=== PATIENT | female | born 1980 | race Two or more races ===

== ENCOUNTER 2018-03-23 17:42 | Emergency (ER) | payer MEDICARE, OTHER ==
[~2018-03-23] VITALS: Ht 162.6 cm; Wt 68.2 kg
[~2018-03-23 17:42] MED LIST: CEPH500 PO; QUET50TA PO; SERT50TA12 PO; VITAD1000 PO
[2018-03-23] MEDS ORDERED: PALI39DI IM (17:57)
[2018-03-23] MEDS ORDERED: HydrOXYzine PAMOATE 50 MG CAPSULE PO ONE (18:15)
[2018-03-23] MEDS ORDERED: IBUPROFEN 600 MG TABLET PO ONE (18:15)
[2018-03-23 21:30] VITALS: BP 121/76
== END 2018-03-23 22:01 | disposition home or self-care (01) ==
LOC: EMS 17:43
DX: F41.9 Anxiety disorder, unspecified (principal); F31.9 Bipolar disorder, unspecified; E03.9 Hypothyroidism, unspecified; F20.9 Schizophrenia, unspecified; K76.0 Fatty (change of) liver, not elsewhere classified; Z79.899 Other long term (current) drug therapy; Z88.8 Allergy status to other drugs, medicaments and biological substances
CPT/HCPCS: 99284

== ENCOUNTER 2018-08-27 13:14 | Inpatient (IN) | payer MEDICARE, MEDICAID ==
[~2018-08-27] VITALS: Ht 160 cm; Wt 70.3 kg
[~2018-08-27 13:14] MED LIST changes: -CEPH500 PO; +PALI39DI IM; -VITAD1000 PO
[2018-08-27 14:33] LABS: BASOPHILS % (AUTO) 0.7 % (0.0-2.0); EOSINOPHILS % (AUTO) 3.5 % (1.0-6.0); HEMATOCRIT 42.1 % (36-46); HEMOGLOBIN 14.3 g/dL (12.0-16.0); LYMPHOCYTES # (AUTO) 1.5 K/uL (1.0-4.8); LYMPHOCYTES % (AUTO) 15.9 % (22.0-44.0); MEAN CORPUSCULAR HEMOGLOBIN 28.1 pg (26.0-34.0); MEAN CORPUSCULAR HGB CONC 34.1 G/dL (31.0-37.0); MEAN CORPUSCULAR VOLUME 83 fL (80-100); MONOCYTES # (AUTO) 0.6 K/uL (0.1-1.0); NEUTROPHILS # (AUTO) 6.7 K/uL (1.8-7.7); NEUTROPHILS % (AUTO) 72.9 % (40.0-70.0); PLATELET COUNT (AUTO) 259 K/uL (150-450); RED BLOOD CELL COUNT(AUTO) 5.11 MIL/uL (4.00-5.20); RED CELL DISTRIBUTION WIDTH 14.4 % (11.5-14.5)
[2018-08-27 15:10] LABS: APPEARANCE,URINE CLEAR (CLEAR); BILIRUBIN,URINE NEGATIVE (NEGATIVE); GLUCOSE, URINE (UA) NEGATIVE (NEGATIVE); KETONES,URINE TRACE mg/dL (NEGATIVE); LEUKOCYTE ESTERASE ,URINE NEGATIVE (NEGATIVE); NITRATE,URINE NEGATIVE (NEGATIVE); OCCULT BLOOD,URINE NEGATIVE (NEGATIVE); PH,URINE 5.5 (5.0-8.0); PROTEIN,URINE NEGATIVE (NEGATIVE); UROBILINOGEN,URINE 0.2 mg/dL (<=1.0)
[2018-08-27 15:15] LABS: AMPHET/METH SCREEN,URINE NEGATIVE (NEGATIVE); BARBITURATE SCREEN, URINE NEGATIVE (NEGATIVE); BENZODIAZEPINES SCREEN,URINE NEGATIVE (NEGATIVE); CANNABINOID SCREEN,URINE NEGATIVE (NEGATIVE); COCAINE SCREEN,URINE NEGATIVE (NEGATIVE); METHADONE SCREEN, URINE NEGATIVE (NEGATIVE); OPIATE SCREEN,URINE NEGATIVE (NEGATIVE)
[2018-08-27] MEDS ORDERED: ZOLPIDEM TARTRATE 5 MG TABLET PO PRN (15:15)
[2018-08-27] MEDS ORDERED: LORazepam 2 MG TABLET PO PRN (15:15)
[2018-08-27] MEDS ORDERED: QUEtiapine FUMARATE 100 MG TABLET PO PRN (15:15)
[2018-08-27 15:19] LABS: PHENCYCLIDINE SCREEN,URINE NEGATIVE (NEGATIVE)
[2018-08-27 15:22] LABS: ALANINE AMINOTRANSFERASE 38 U/L (12-78); ALBUMIN 4.3 g/dL (3.4-5.0); ALKALINE PHOSPHATASE 80 U/L (46-116); ANION GAP 9 mmol/L (8-16); ASPARTATE AMINOTRANSFERASE 31 U/L (15-37); BILIRUBIN,TOTAL 0.3 mg/dL (0.1-1.0); CALCIUM, TOTAL 9.9 mg/dL (8.8-10.5); CARBON DIOXIDE 29 mmol/L (22-29); CHLORIDE 101 mmol/L (98-107); CREATININE 0.89 mg/dL (0.60-1.30); GLOMERULAR FILTR. RATE CALC > 60 mL/min (>60); GLUCOSE,RANDOM 98 mg/dL (70-110); LIPASE 159 U/L (73-393); POTASSIUM 3.9 mmol/L (3.5-5.1); SODIUM SERUM 139 mmol/L (136-145); TOTAL PROTEIN, SERUM 8.8 g/dL (6.4-8.2); UREA NITROGEN, BLOOD 12 mg/dL (7-18)
[2018-08-27] MEDS ORDERED: QUEtiapine FUMARATE 200 MG TABLET PO ONE (15:30)
[2018-08-27] MEDS ORDERED: LORazepam 2 MG TABLET PO ONE (15:30)
[2018-08-27] MEDS ORDERED: QUEtiapine FUMARATE 100 MG TABLET PO ONE (15:30)
[2018-08-27] MEDS ORDERED: GuaiFENesin/D-METHORPHAN [SUGAR-FREE] 200-20MG/10 ML SYRUP UDCUP PO PRN (17:30)
[2018-08-27] MEDS ORDERED: PROMETHAZINE HCL 25 MG TABLET PO PRN (17:30)
[2018-08-27] MEDS ORDERED: LOPERAMIDE HCL 2 MG CAPSULE PO PRN (17:30)
[2018-08-27] MEDS ORDERED: HydrOXYzine PAMOATE 50 MG CAPSULE PO PRN (17:30)
[2018-08-27] MEDS ORDERED: MAGNESIUM HYDROXIDE SUSPENSION 30 ML UDCUP PO PRN (17:30)
[2018-08-27] MEDS ORDERED: MAG HYDROX/AL HYDROX/SIMETH ES 30 ML SUSPENSION UDCUP PO PRN (17:30)
[2018-08-27] MEDS ORDERED: TUBERCULIN, PURIFIED PROTEIN DERIVATIVE 5 TU/0.1 ML SYG ID ONE (17:30)
[2018-08-27] MEDS ORDERED: ACETAMINOPHEN 325 MG TABLET PO PRN (17:30)
[2018-08-27 17:35] VITALS: BP 112/77
[2018-08-27 17:40] LABS: HCG,QUANTITATIVE < 1 mIU/mL (0-6)
[2018-08-27] MEDS ORDERED: PERMETHRIN 1% 60 ML LOTION TP ONE (18:15)
[2018-08-28 05:03] VITALS: BP 110/68
[2018-08-28 08:10] VITALS: BP 96/58
[2018-08-28 09:06] LABS: FREE T4 (FREE THYROXINE) 0.88 ng/dL (0.76-1.46); THYROID STIMULATING HORMONE 3.42 uIU/mL (0.36-3.74)
[2018-08-28] MEDS: SERTRALINE HCL 50 MG TABLET PO SCH (09:57)
[2018-08-28] MEDS: THIAMINE HCL 100 MG TABLET PO SCH ×2 (09:57→17:01)
[2018-08-28] MEDS: FOLIC ACID 1 MG TABLET PO SCH (09:57)
[2018-08-28] MEDS: MULTIVITAMINS WITH MINERALS, THERAPEUTIC TABLET PO SCH (09:57)
[2018-08-28] MEDS ORDERED: ONDANSETRON HCL 4 MG TABLET PO PRN (10:15)
[2018-08-28] MEDS ORDERED: BACITRACIN 28.4 GM OINTMENT TP PRN (10:15)
[2018-08-28] MEDS ORDERED: ALBUTEROL SULFATE HFA 90 MCG/PUFF 8 GM INHALER IH PRN (10:15)
[2018-08-28] MEDS ORDERED: CloNIDine HCL 0.1 MG TABLET PO PRN (10:15)
[2018-08-28] MEDS ORDERED: PETROLATUM,WHITE 71 GM JELLY TP PRN (10:15)
[2018-08-28] MEDS ORDERED: IBUPROFEN 600 MG TABLET PO PRN (10:15)
[2018-08-28] MEDS ORDERED: BENZOCAINE/MENTHOL LOZENGE MM PRN (10:15)
[2018-08-28 16:11] VITALS: BP 103/60
[2018-08-28] MEDS ORDERED: QUET100T33 PO (16:28)
[2018-08-28] MEDS ORDERED: SERT50TA12 PO (16:28)
[2018-08-28] MEDS ORDERED: IVERMECTIN 3 MG TABLET PO ONE (20:30)
[2018-08-28] MEDS: QUEtiapine FUMARATE 100 MG TABLET PO SCH ×2 (20:43→21:15)
[2018-08-29 01:06] VITALS: BP 110/68
[2018-08-29] MEDS: FOLIC ACID 1 MG TABLET PO SCH (08:03)
[2018-08-29] MEDS: THIAMINE HCL 100 MG TABLET PO SCH (08:03)
[2018-08-29] MEDS: MULTIVITAMINS WITH MINERALS, THERAPEUTIC TABLET PO SCH (08:04)
[2018-08-29] MEDS: SERTRALINE HCL 50 MG TABLET PO SCH (08:04)
[2018-08-29 08:51] LABS: CHOL/HDL RATIO 8.3 (3.9-5.7)
[2018-08-29] MEDS ORDERED: DOCUSATE SODIUM 100 MG CAPSULE PO SCH (09:00)
[2018-08-29 09:03] VITALS: BP 112/63
== END 2018-08-29 13:24 | disposition home or self-care (01) | DRG 885 ==
LOC: EMS 13:16 → B2X 16:10 → B2S 18:22
PROVIDERS: ADMIT Psychiatry & Neurology Psychiatry; ATTEND Psychiatry & Neurology Psychiatry
DX: F25.9 Schizoaffective disorder, unspecified (principal); Z91.19 Patient's noncompliance with other medical treatment and regimen; Z88.8 Allergy status to other drugs, medicaments and biological substances; F17.210 Nicotine dependence, cigarettes, uncomplicated; E03.9 Hypothyroidism, unspecified; E55.9 Vitamin D deficiency, unspecified; F31.9 Bipolar disorder, unspecified; F41.9 Anxiety disorder, unspecified; K59.00 Constipation, unspecified; K76.0 Fatty (change of) liver, not elsewhere classified; Z91.14 Patient's other noncompliance with medication regimen; Z92.29 Personal history of other drug therapy
CPT/HCPCS: 82271; 84439; 84443; 90686; G0480

== ENCOUNTER 2018-09-13 12:37 | Inpatient (IN) | payer MEDICARE, MEDICAID ==
[~2018-09-13] VITALS: Ht 160 cm; Wt 71.1 kg
[~2018-09-13 12:37] MED LIST changes: +QUET100T33 PO
[2018-09-13] MEDS ORDERED: CLON1 PO (12:51)
[2018-09-13 13:09] LABS: AMPHET/METH SCREEN,URINE NEGATIVE (NEGATIVE); BARBITURATE SCREEN, URINE NEGATIVE (NEGATIVE); BENZODIAZEPINES SCREEN,URINE NEGATIVE (NEGATIVE); CANNABINOID SCREEN,URINE NEGATIVE (NEGATIVE); COCAINE SCREEN,URINE NEGATIVE (NEGATIVE); METHADONE SCREEN, URINE NEGATIVE (NEGATIVE); OPIATE SCREEN,URINE NEGATIVE (NEGATIVE); PHENCYCLIDINE SCREEN,URINE NEGATIVE (NEGATIVE)
[2018-09-13 13:13] LABS: BASOPHILS % (AUTO) 0.3 % (0.0-2.0); EOSINOPHILS % (AUTO) 5.7 % (1.0-6.0); HEMATOCRIT 40.8 % (36-46); HEMOGLOBIN 13.6 g/dL (12.0-16.0); LYMPHOCYTES # (AUTO) 1.5 K/uL (1.0-4.8); LYMPHOCYTES % (AUTO) 21.7 % (22.0-44.0); MEAN CORPUSCULAR HEMOGLOBIN 28.2 pg (26.0-34.0); MEAN CORPUSCULAR HGB CONC 33.4 G/dL (31.0-37.0); MEAN CORPUSCULAR VOLUME 84 fL (80-100); MONOCYTES # (AUTO) 0.5 K/uL (0.1-1.0); NEUTROPHILS # (AUTO) 4.4 K/uL (1.8-7.7); NEUTROPHILS % (AUTO) 65.3 % (40.0-70.0); PLATELET COUNT (AUTO) 218 K/uL (150-450); RED BLOOD CELL COUNT(AUTO) 4.85 MIL/uL (4.00-5.20); RED CELL DISTRIBUTION WIDTH 14.9 % (11.5-14.5)
[2018-09-13 13:23] LABS: ANION GAP 12 mmol/L (8-16); CALCIUM, TOTAL 9.4 mg/dL (8.8-10.5); CARBON DIOXIDE 25 mmol/L (22-29); CHLORIDE 102 mmol/L (98-107); CREATININE 0.83 mg/dL (0.60-1.30); GLOMERULAR FILTR. RATE CALC > 60 mL/min (>60); GLUCOSE,RANDOM 87 mg/dL (70-110); POTASSIUM 3.8 mmol/L (3.5-5.1); SODIUM SERUM 139 mmol/L (136-145); UREA NITROGEN, BLOOD 9 mg/dL (7-18)
[2018-09-13 13:28] LABS: ALANINE AMINOTRANSFERASE 28 U/L (12-78); ALKALINE PHOSPHATASE 78 U/L (46-116); ASPARTATE AMINOTRANSFERASE 23 U/L (15-37); BILIRUBIN,TOTAL 0.3 mg/dL (0.1-1.0); TOTAL PROTEIN, SERUM 8.1 g/dL (6.4-8.2)
[2018-09-13] MEDS ORDERED: QUEtiapine FUMARATE 100 MG TABLET PO ONE (13:30)
[2018-09-13] MEDS ORDERED: LORazepam 2 MG TABLET PO ONE (13:30)
[2018-09-13] MEDS ORDERED: LORazepam 1 MG TABLET PO PRN (14:00)
[2018-09-13] MEDS ORDERED: QUEtiapine FUMARATE 100 MG TABLET PO PRN (14:00)
[2018-09-13] MEDS ORDERED: ZOLPIDEM TARTRATE 10 MG TABLET PO PRN (14:00)
[2018-09-13 16:28] LABS: HCG,QUANTITATIVE < 1 mIU/mL (0-6)
[2018-09-13 16:39] VITALS: BP 108/81
[2018-09-13] MEDS ORDERED: PERMETHRIN 5% 60 GM CREAM TP ONE (17:00)
[2018-09-13] MEDS: OLANZapine 10 MG TABLET PO SCH (20:20)
[2018-09-14 00:55] VITALS: BP 103/64
[2018-09-14 08:14] LABS: FREE T4 (FREE THYROXINE) 0.68 ng/dL (0.76-1.46); THYROID STIMULATING HORMONE 4.04 uIU/mL (0.36-3.74)
[2018-09-14 08:20] LABS: HEMOGLOBIN A1C 5.4 % (4.5-6.2)
[2018-09-14 08:42] VITALS: BP 110/72
[2018-09-14] MEDS: SERTRALINE HCL 50 MG TABLET PO SCH (08:43)
[2018-09-14] MEDS ORDERED: LOPERAMIDE HCL 2 MG CAPSULE PO PRN (11:45)
[2018-09-14] MEDS ORDERED: ONDANSETRON HCL 4 MG TABLET PO PRN (11:45)
[2018-09-14] MEDS ORDERED: ACETAMINOPHEN 325 MG TABLET PO PRN (11:45)
[2018-09-14] MEDS ORDERED: PETROLATUM,WHITE 71 GM JELLY TP PRN (11:45)
[2018-09-14] MEDS ORDERED: MAGNESIUM HYDROXIDE SUSPENSION 30 ML UDCUP PO PRN (11:45)
[2018-09-14] MEDS ORDERED: BACITRACIN 28.4 GM OINTMENT TP PRN (11:45)
[2018-09-14] MEDS ORDERED: ALBUTEROL SULFATE HFA 90 MCG/PUFF 8 GM INHALER IH PRN (11:45)
[2018-09-14] MEDS ORDERED: CloNIDine HCL 0.1 MG TABLET PO PRN (11:45)
[2018-09-14] MEDS ORDERED: BENZOCAINE/MENTHOL LOZENGE MM PRN (11:45)
[2018-09-14] MEDS ORDERED: MAG HYDROX/AL HYDROX/SIMETH ES 30 ML SUSPENSION UDCUP PO PRN (11:45)
[2018-09-14 16:31] VITALS: BP 116/64
[2018-09-14] MEDS: OLANZapine 10 MG TABLET PO SCH (20:08)
[2018-09-15 01:11] VITALS: BP 112/78
[2018-09-15 03:25] VITALS: BP 132/90
[2018-09-15] MEDS: IBUPROFEN 600 MG TABLET PO PRN ×2 (03:27→16:36)
[2018-09-15] MEDS ORDERED: LEVOTHYROXINE SODIUM 25 MCG TABLET PO SCH (06:30)
[2018-09-15] MEDS: LEVOTHYROXINE SODIUM 50 MCG TABLET PO SCH (06:41)
[2018-09-15 08:09] VITALS: BP 108/63
[2018-09-15] MEDS: SERTRALINE HCL 50 MG TABLET PO SCH (08:11)
[2018-09-15] MEDS: CHOLECALCIFEROL (VIT D3) 1,000 UNITS TABLET PO SCH (08:11)
[2018-09-15] MEDS ORDERED: GuaiFENesin/D-METHORPHAN [SUGAR-FREE] 200-20MG/10 ML SYRUP UDCUP PO PRN (15:00)
[2018-09-15] MEDS ORDERED: HydrOXYzine PAMOATE 50 MG CAPSULE PO PRN (15:00)
[2018-09-15 16:03] VITALS: BP 106/76
[2018-09-15] MEDS: THIAMINE HCL 100 MG TABLET PO SCH (16:35)
[2018-09-15] MEDS: OLANZapine 10 MG TABLET PO SCH (20:34)
[2018-09-15] MEDS ORDERED: ZOLPIDEM TARTRATE 5 MG TABLET PO PRN (22:45)
[2018-09-16 01:32] VITALS: BP 120/81
[2018-09-16] MEDS: LEVOTHYROXINE SODIUM 50 MCG TABLET PO SCH (06:45)
[2018-09-16 08:28] VITALS: BP 109/69
[2018-09-16] MEDS: MULTIVITAMINS WITH MINERALS, THERAPEUTIC TABLET PO SCH (09:47)
[2018-09-16] MEDS: CHOLECALCIFEROL (VIT D3) 1,000 UNITS TABLET PO SCH (09:47)
[2018-09-16] MEDS: THIAMINE HCL 100 MG TABLET PO SCH ×2 (09:47→16:30)
[2018-09-16] MEDS: SERTRALINE HCL 50 MG TABLET PO SCH (09:47)
[2018-09-16] MEDS: FOLIC ACID 1 MG TABLET PO SCH (09:47)
[2018-09-16 16:04] VITALS: BP 120/91
[2018-09-16] MEDS: OLANZapine 10 MG TABLET PO SCH (20:28)
[2018-09-16] MEDS ORDERED: QUEtiapine FUMARATE 200 MG TABLET PO SCH (21:00)
[2018-09-17 04:37] VITALS: BP 115/67
[2018-09-17] MEDS: LEVOTHYROXINE SODIUM 50 MCG TABLET PO SCH (06:06)
[2018-09-17] MEDS ORDERED: PERMETHRIN 1% 60 ML LOTION TP ONE (08:15)
[2018-09-17] MEDS: MULTIVITAMINS WITH MINERALS, THERAPEUTIC TABLET PO SCH (08:49)
[2018-09-17] MEDS: THIAMINE HCL 100 MG TABLET PO SCH ×2 (08:49→16:39)
[2018-09-17] MEDS: CHOLECALCIFEROL (VIT D3) 1,000 UNITS TABLET PO SCH (08:50)
[2018-09-17] MEDS: SERTRALINE HCL 50 MG TABLET PO SCH (08:50)
[2018-09-17] MEDS: FOLIC ACID 1 MG TABLET PO SCH (08:50)
[2018-09-17 09:00] VITALS: BP 126/83
[2018-09-17] MEDS ORDERED: PERMETHRIN 5% 60 GM CREAM TP ONE (09:00)
[2018-09-17 15:00] VITALS: BP 122/82
[2018-09-17 16:31] VITALS: BP 100/66
[2018-09-17] MEDS: QUEtiapine FUMARATE 200 MG TABLET PO SCH (20:35)
[2018-09-18 01:33] VITALS: BP 106/68
[2018-09-18] MEDS: LEVOTHYROXINE SODIUM 50 MCG TABLET PO SCH (06:20)
[2018-09-18] MEDS: THIAMINE HCL 100 MG TABLET PO SCH ×2 (08:28→16:33)
[2018-09-18] MEDS: CHOLECALCIFEROL (VIT D3) 1,000 UNITS TABLET PO SCH (08:28)
[2018-09-18] MEDS: MULTIVITAMINS WITH MINERALS, THERAPEUTIC TABLET PO SCH (08:28)
[2018-09-18] MEDS: FOLIC ACID 1 MG TABLET PO SCH (08:28)
[2018-09-18] MEDS: SERTRALINE HCL 50 MG TABLET PO SCH (08:28)
[2018-09-18 09:00] VITALS: BP 106/64
[2018-09-18] MEDS ORDERED: SERT100T12 PO (12:56)
[2018-09-18] MEDS ORDERED: QUET200T29 PO (12:56)
[2018-09-18 16:04] VITALS: BP 112/65
[2018-09-18] MEDS: QUEtiapine FUMARATE 200 MG TABLET PO SCH (20:37)
[2018-09-19 00:22] VITALS: BP 110/82
[2018-09-19] MEDS: LEVOTHYROXINE SODIUM 50 MCG TABLET PO SCH (06:40)
[2018-09-19] MEDS ORDERED: QUET200T PO (07:57)
[2018-09-19] MEDS ORDERED: LEVO50TA11 PO (07:59)
[2018-09-19 08:39] VITALS: BP 104/64
[2018-09-19] MEDS: FOLIC ACID 1 MG TABLET PO SCH (08:56)
[2018-09-19] MEDS: CHOLECALCIFEROL (VIT D3) 1,000 UNITS TABLET PO SCH (08:56)
[2018-09-19] MEDS: THIAMINE HCL 100 MG TABLET PO SCH (08:56)
[2018-09-19] MEDS: MULTIVITAMINS WITH MINERALS, THERAPEUTIC TABLET PO SCH (08:56)
[2018-09-19] MEDS ORDERED: SERTRALINE HCL 100 MG TABLET PO SCH (09:00)
== END 2018-09-19 13:00 | disposition home or self-care (01) | DRG 885 ==
LOC: EMS 12:37 → B2X 14:42
PROVIDERS: ADMIT Psychiatry & Neurology Psychiatry; ATTEND Psychiatry & Neurology Psychiatry
PROC: 3E0234Z Introduction of Serum, Toxoid and Vaccine into Muscle, Percutaneous Approach (ICD-10-PCS; principal; 2018-09-13)
DX: F25.1 Schizoaffective disorder, depressive type (principal); R45.851 Suicidal ideations; B85.0 Pediculosis due to Pediculus humanus capitis; E03.9 Hypothyroidism, unspecified; E55.9 Vitamin D deficiency, unspecified; E78.5 Hyperlipidemia, unspecified; F17.200 Nicotine dependence, unspecified, uncomplicated; F31.9 Bipolar disorder, unspecified; G47.00 Insomnia, unspecified; K59.00 Constipation, unspecified; K76.0 Fatty (change of) liver, not elsewhere classified; Z91.14 Patient's other noncompliance with medication regimen; Z23 Encounter for immunization
CPT/HCPCS: 83036; 84439; 84443; 90686; G0480

== ENCOUNTER 2019-03-17 11:23 | Inpatient (IN) | payer MEDICARE, MEDICAID ==
[~2019-03-17] VITALS: Ht 160 cm; Wt 68.9 kg
[~2019-03-17 11:23] MED LIST changes: +LEVO50TA11 PO; -QUET100T33 PO; +QUET200T PO; +QUET200T29 PO; -QUET50TA PO; +SERT100T12 PO
[2019-03-17 12:27] LABS: BASOPHILS % (AUTO) 0.2 % (0.0-2.0); EOSINOPHILS % (AUTO) 0.5 % (1.0-6.0); HEMATOCRIT 41.3 % (36-46); HEMOGLOBIN 13.7 g/dL (12.0-16.0); LYMPHOCYTES # (AUTO) 0.9 K/uL (1.0-4.8); LYMPHOCYTES % (AUTO) 10.5 % (22.0-44.0); MEAN CORPUSCULAR HEMOGLOBIN 28.1 pg (26.0-34.0); MEAN CORPUSCULAR HGB CONC 33.2 G/dL (31.0-37.0); MEAN CORPUSCULAR VOLUME 85 fL (80-100); MONOCYTES # (AUTO) 0.3 K/uL (0.1-1.0); NEUTROPHILS # (AUTO) 6.9 K/uL (1.8-7.7); NEUTROPHILS % (AUTO) 84.8 % (40.0-70.0); PLATELET COUNT (AUTO) 282 K/uL (150-450); RED BLOOD CELL COUNT(AUTO) 4.88 MIL/uL (4.00-5.20); RED CELL DISTRIBUTION WIDTH 14.5 % (11.5-14.5)
[2019-03-17] MEDS ORDERED: PIPERONYL BUTOXIDE/PYRETHRINS 120 ML SHAMPOO TP ONE (12:30)
[2019-03-17 12:42] LABS: ANION GAP 10 mmol/L (8-16); CALCIUM, TOTAL 9.6 mg/dL (8.8-10.5); CARBON DIOXIDE 26 mmol/L (22-29); CHLORIDE 101 mmol/L (98-107); CREATININE 0.86 mg/dL (0.60-1.30); GLOMERULAR FILTR. RATE CALC > 60 mL/min (>60); GLUCOSE,RANDOM 109 mg/dL (70-110); POTASSIUM 4.5 mmol/L (3.5-5.1); SODIUM SERUM 137 mmol/L (136-145); UREA NITROGEN, BLOOD 7 mg/dL (7-18)
[2019-03-17 12:57] LABS: ALANINE AMINOTRANSFERASE 18 U/L (12-78); ALBUMIN 4.3 g/dL (3.4-5.0); ALKALINE PHOSPHATASE 84 U/L (46-116); ASPARTATE AMINOTRANSFERASE 16 U/L (15-37); BILIRUBIN,TOTAL 0.3 mg/dL (0.1-1.0); HCG,QUANTITATIVE < 1 mIU/mL (0-6); THYROID STIMULATING HORMONE 2.44 uIU/mL (0.36-3.74); TOTAL PROTEIN, SERUM 8.4 g/dL (6.4-8.2)
[2019-03-17 13:02] LABS: AMPHET/METH SCREEN,URINE NEGATIVE (NEGATIVE); BARBITURATE SCREEN, URINE NEGATIVE (NEGATIVE); BENZODIAZEPINES SCREEN,URINE NEGATIVE (NEGATIVE); CANNABINOID SCREEN,URINE NEGATIVE (NEGATIVE); COCAINE SCREEN,URINE NEGATIVE (NEGATIVE); METHADONE SCREEN, URINE NEGATIVE (NEGATIVE); OPIATE SCREEN,URINE NEGATIVE (NEGATIVE); PHENCYCLIDINE SCREEN,URINE NEGATIVE (NEGATIVE)
[2019-03-17] MEDS ORDERED: ZOLPIDEM TARTRATE 10 MG TABLET PO PRN (13:15)
[2019-03-17] MEDS ORDERED: QUEtiapine FUMARATE 100 MG TABLET PO PRN (13:15)
[2019-03-17 19:25] VITALS: BP 112/81
[2019-03-17] MEDS: LORazepam 2 MG TABLET PO PRN (19:30)
[2019-03-18 01:43] VITALS: BP 119/90
[2019-03-18] MEDS: LEVOTHYROXINE SODIUM 50 MCG TABLET PO SCH (06:45)
[2019-03-18 08:15] VITALS: BP 124/66
[2019-03-18 16:04] VITALS: BP 109/65
[2019-03-18] MEDS: RisperiDONE 2 MG TABLET PO SCH (20:40)
[2019-03-19 04:23] VITALS: BP 118/78
[2019-03-19] MEDS ORDERED: PERMETHRIN 1% 60 ML LOTION TP ONE (06:00)
[2019-03-19] MEDS: LEVOTHYROXINE SODIUM 50 MCG TABLET PO SCH (06:39)
[2019-03-19] MEDS: RisperiDONE 2 MG TABLET PO SCH ×2 (08:28→20:12)
[2019-03-19] MEDS: SERTRALINE HCL 50 MG TABLET PO SCH (08:28)
[2019-03-19 08:41] VITALS: BP 101/61
[2019-03-19 16:01] VITALS: BP 106/64
[2019-03-20 06:09] VITALS: BP 110/69
[2019-03-20] MEDS: LEVOTHYROXINE SODIUM 50 MCG TABLET PO SCH (06:28)
[2019-03-20 08:08] VITALS: BP 122/85
[2019-03-20] MEDS: RisperiDONE 2 MG TABLET PO SCH ×2 (08:08→20:07)
[2019-03-20] MEDS: SERTRALINE HCL 50 MG TABLET PO SCH (08:08)
[2019-03-20 09:04] LABS: CHOL/HDL RATIO 7.9 (3.9-5.7); FREE T4 (FREE THYROXINE) 0.84 ng/dL (0.76-1.46)
[2019-03-20] MEDS ORDERED: LOPERAMIDE HCL 2 MG CAPSULE PO PRN (13:30)
[2019-03-20] MEDS ORDERED: MAGNESIUM HYDROXIDE SUSPENSION 30 ML UDCUP PO PRN (13:30)
[2019-03-20] MEDS ORDERED: MAG HYDROX/AL HYDROX/SIMETH ES 30 ML SUSPENSION UDCUP PO PRN (13:30)
[2019-03-20] MEDS ORDERED: GuaiFENesin/D-METHORPHAN [SUGAR-FREE] 200-20MG/10 ML SYRUP UDCUP PO PRN (13:30)
[2019-03-20] MEDS ORDERED: CloNIDine HCL 0.1 MG TABLET PO PRN (13:30)
[2019-03-20] MEDS ORDERED: NICOTINE 14 MG/24 HOUR PATCH TD PRN (13:30)
[2019-03-20] MEDS ORDERED: DOCUSATE SODIUM 100 MG CAPSULE PO PRN (13:30)
[2019-03-20] MEDS ORDERED: ALBUTEROL SULFATE HFA 90 MCG/PUFF 8 GM INHALER IH PRN (13:30)
[2019-03-20] MEDS ORDERED: ONDANSETRON HCL 4 MG TABLET PO PRN (13:30)
[2019-03-20] MEDS ORDERED: IBUPROFEN 400 MG TABLET PO PRN (13:30)
[2019-03-20] MEDS ORDERED: ACETAMINOPHEN 325 MG TABLET PO PRN (13:30)
[2019-03-20] MEDS ORDERED: PETROLATUM,WHITE 28 GM JELLY TP PRN (13:30)
[2019-03-20 13:37] VITALS: BP 118/82
[2019-03-20 16:00] VITALS: BP 112/73
[2019-03-20] MEDS: SIMVASTATIN 10 MG TABLET PO SCH (20:07)
[2019-03-21 06:14] VITALS: BP 93/60
[2019-03-21] MEDS: LEVOTHYROXINE SODIUM 50 MCG TABLET PO SCH (06:45)
[2019-03-21] MEDS: RisperiDONE 2 MG TABLET PO SCH ×2 (08:01→20:27)
[2019-03-21] MEDS: SERTRALINE HCL 50 MG TABLET PO SCH (08:01)
[2019-03-21 08:23] VITALS: BP 110/75
[2019-03-21] MEDS ORDERED: ONDANSETRON HCL 4 MG/2 ML VIAL IM PRN (11:00)
[2019-03-21] MEDS: LORazepam 2 MG TABLET PO PRN (11:16)
[2019-03-21 16:15] VITALS: BP 101/60
[2019-03-21] MEDS: SIMVASTATIN 10 MG TABLET PO SCH (20:48)
[2019-03-22 06:01] VITALS: BP 114/62
[2019-03-22] MEDS: LEVOTHYROXINE SODIUM 50 MCG TABLET PO SCH (06:18)
[2019-03-22] MEDS: SERTRALINE HCL 50 MG TABLET PO SCH (08:03)
[2019-03-22] MEDS: RisperiDONE 2 MG TABLET PO SCH ×2 (08:03→20:27)
[2019-03-22 08:05] VITALS: BP 130/82
[2019-03-22 08:26] LABS: ANION GAP 8 mmol/L (8-16); CALCIUM, TOTAL 8.7 mg/dL (8.8-10.5); CARBON DIOXIDE 26 mmol/L (22-29); CHLORIDE 104 mmol/L (98-107); CREATININE 0.88 mg/dL (0.60-1.30); GLOMERULAR FILTR. RATE CALC > 60 mL/min (>60); GLUCOSE,RANDOM 112 mg/dL (70-110); LIPASE 166 U/L (73-393); POTASSIUM 3.9 mmol/L (3.5-5.1); SODIUM SERUM 138 mmol/L (136-145)
[2019-03-22 08:32] LABS: UREA NITROGEN, BLOOD 11 mg/dL (7-18)
[2019-03-22 16:06] VITALS: BP 100/60
[2019-03-22] MEDS: SIMVASTATIN 10 MG TABLET PO SCH (20:27)
[2019-03-23 06:02] VITALS: BP 111/64
[2019-03-23] MEDS: LEVOTHYROXINE SODIUM 50 MCG TABLET PO SCH (06:13)
[2019-03-23] MEDS: RisperiDONE 2 MG TABLET PO SCH (08:01)
[2019-03-23] MEDS: SERTRALINE HCL 50 MG TABLET PO SCH (08:01)
[2019-03-23 08:09] VITALS: BP 120/87
[2019-03-23 08:12] LABS: APPEARANCE,URINE CLOUDY (CLEAR); BILIRUBIN,URINE NEGATIVE (NEGATIVE); GLUCOSE, URINE (UA) NEGATIVE (NEGATIVE); KETONES,URINE NEGATIVE (NEGATIVE); LEUKOCYTE ESTERASE ,URINE NEGATIVE (NEGATIVE); NITRATE,URINE NEGATIVE (NEGATIVE); OCCULT BLOOD,URINE NEGATIVE (NEGATIVE); PH,URINE 6.5 (5.0-8.0); PROTEIN,URINE NEGATIVE (NEGATIVE); UROBILINOGEN,URINE 0.2 mg/dL (<=1.0)
[2019-03-23 08:23] LABS: BACTERIA,URINE None Seen /HPF (None Seen); RBC,URINE None Seen /HPF (0-2); SQUAMOUS EPITHELIAL CELL,UR Moderate /LPF (None Seen); WBC,URINE 0-2 /HPF (0-5)
[2019-03-23] MEDS ORDERED: SERT50TA12 PO (11:17)
[2019-03-23] MEDS ORDERED: SIMV-259 PO (11:18)
[2019-03-23] MEDS ORDERED: RISP2 PO (11:19)
== END 2019-03-23 13:23 | disposition home or self-care (01) | DRG 885 ==
LOC: EMS 11:26 → B2X 15:55
PROVIDERS: ADMIT Psychiatry & Neurology Psychiatry; ATTEND Psychiatry & Neurology Psychiatry
DX: F20.0 Paranoid schizophrenia (principal); E78.5 Hyperlipidemia, unspecified; E03.9 Hypothyroidism, unspecified; K59.00 Constipation, unspecified; F31.9 Bipolar disorder, unspecified; R45.87 Impulsiveness
CPT/HCPCS: 84439; 84443; 87081; G0480; J2405; Q0162

== ENCOUNTER 2019-04-21 19:08 | Emergency (ER) | payer MEDICARE, OTHER ==
[~2019-04-21] VITALS: Ht 162.6 cm; Wt 69.5 kg
[~2019-04-21 19:08] MED LIST changes: -PALI39DI IM; -QUET200T PO; -QUET200T29 PO; +RISP2 PO; -SERT100T12 PO; +SIMV-259 PO
[2019-04-21 19:24] VITALS: BP 119/83
[2019-04-21] MEDS ORDERED: LIDOCAINE 2% 30 ML JELLY TP ONE (19:30)
[2019-04-21] MEDS ORDERED: ACETAMINOPHEN 160 MG/5 ML SUSPENSION UDCUP PO ONE (19:30)
== END 2019-04-21 20:30 | disposition home or self-care (01) ==
LOC: EMS 19:10
DX: J02.8 Acute pharyngitis due to other specified organisms (principal); B97.89 Other viral agents as the cause of diseases classified elsewhere; F20.0 Paranoid schizophrenia; F41.9 Anxiety disorder, unspecified; F31.9 Bipolar disorder, unspecified; E03.9 Hypothyroidism, unspecified; Z88.8 Allergy status to other drugs, medicaments and biological substances

== ENCOUNTER 2019-07-09 13:16 | Inpatient (IN) | payer MEDICARE, MEDICAID ==
[~2019-07-09] VITALS: Ht 160 cm; Wt 69.1 kg
[2019-07-09] MEDS ORDERED: QUEtiapine FUMARATE 100 MG TABLET PO PRN (13:45)
[2019-07-09] MEDS ORDERED: LORazepam 2 MG TABLET PO PRN (13:45)
[2019-07-09] MEDS ORDERED: ZOLPIDEM TARTRATE 10 MG TABLET PO PRN (13:45)
[2019-07-09] MEDS ORDERED: INFLUENZA VIRUS VACCINE QVS 2019-20 (3YR+)/PF 60 MCG/0.5 ML SYRINGE IM ONE (15:30)
[2019-07-09 16:12] VITALS: BP 120/76
[2019-07-09] MEDS ORDERED: PERMETHRIN 1% 60 ML LOTION TP ONE (16:30)
[2019-07-09] MEDS: SERTRALINE HCL 50 MG TABLET PO SCH (16:53)
[2019-07-09] MEDS: RisperiDONE 2 MG TABLET PO SCH ×2 (16:53→21:20)
[2019-07-09] MEDS ORDERED: MAG HYDROX/AL HYDROX/SIMETH ES 30 ML SUSPENSION UDCUP PO PRN (17:15)
[2019-07-09] MEDS ORDERED: DOCUSATE SODIUM 100 MG CAPSULE PO PRN (17:15)
[2019-07-09] MEDS ORDERED: MAGNESIUM HYDROXIDE SUSPENSION 30 ML UDCUP PO PRN (17:15)
[2019-07-09] MEDS ORDERED: PETROLATUM,WHITE 28 GM JELLY TP PRN (17:15)
[2019-07-09] MEDS ORDERED: IBUPROFEN 400 MG TABLET PO PRN (17:15)
[2019-07-09] MEDS ORDERED: LOPERAMIDE HCL 2 MG CAPSULE PO PRN (17:15)
[2019-07-09] MEDS ORDERED: ONDANSETRON HCL 4 MG TABLET PO PRN (17:15)
[2019-07-09] MEDS ORDERED: CloNIDine HCL 0.1 MG TABLET PO PRN (17:15)
[2019-07-09] MEDS ORDERED: ACETAMINOPHEN 325 MG TABLET PO PRN (17:15)
[2019-07-09] MEDS ORDERED: GuaiFENesin/D-METHORPHAN [SUGAR-FREE] 200-20MG/10 ML SYRUP UDCUP PO PRN (17:15)
[2019-07-09] MEDS ORDERED: NICOTINE 14 MG/24 HOUR PATCH TD PRN (17:15)
[2019-07-09] MEDS ORDERED: ALBUTEROL SULFATE HFA 90 MCG/PUFF 8 GM INHALER IH PRN (17:15)
[2019-07-09] MEDS ORDERED: PNEUMOCOCCAL VACCINE POLYVALENT 0.5 ML VIAL [PPSV23] IM ONE (19:30)
[2019-07-09] MEDS: PRAZOSIN HCL 1 MG CAPSULE PO SCH (21:17)
[2019-07-09] MEDS: QUEtiapine FUMARATE 100 MG TABLET PO SCH (21:20)
[2019-07-09] MEDS: SIMVASTATIN 10 MG TABLET PO SCH (21:20)
[2019-07-09 21:26] VITALS: BP 116/71
[2019-07-10 00:12] VITALS: BP 110/65
[2019-07-10] MEDS: LEVOTHYROXINE SODIUM 50 MCG TABLET PO SCH (07:08)
[2019-07-10 07:49] LABS: BASOPHILS % (AUTO) 0.4 % (0.0-2.0); EOSINOPHILS % (AUTO) 1.8 % (1.0-6.0); HEMATOCRIT 37.8 % (36-46); HEMOGLOBIN 12.7 g/dL (12.0-16.0); MEAN CORPUSCULAR HEMOGLOBIN 28.2 pg (26.0-34.0); MEAN CORPUSCULAR HGB CONC 33.5 G/dL (31.0-37.0); MEAN CORPUSCULAR VOLUME 84 fL (80-100); MONOCYTES # (AUTO) 0.5 K/uL (0.1-1.0); MONOCYTES % (AUTO) 9.4 % (2.0-9.0); NEUTROPHILS # (AUTO) 2.8 K/uL (1.8-7.7); NEUTROPHILS % (AUTO) 51.4 % (40.0-70.0); PLATELET COUNT (AUTO) 230 K/uL (150-450); RED BLOOD CELL COUNT(AUTO) 4.49 MIL/uL (4.00-5.20)
[2019-07-10 08:20] LABS: ALANINE AMINOTRANSFERASE 18 U/L (12-78); ALBUMIN 3.5 g/dL (3.4-5.0); ALKALINE PHOSPHATASE 82 U/L (46-116); ANION GAP 9 mmol/L (8-16); ASPARTATE AMINOTRANSFERASE 14 U/L (15-37); BILIRUBIN,TOTAL 0.2 mg/dL (0.1-1.0); CARBON DIOXIDE 29 mmol/L (22-29); CHLORIDE 104 mmol/L (98-107); CHOL/HDL RATIO 6.9 (3.9-5.7); CHOLESTEROL 215 mg/dL (131-200); CREATININE 0.83 mg/dL (0.60-1.30); FREE T4 (FREE THYROXINE) 0.89 ng/dL (0.76-1.46); GLOMERULAR FILTR. RATE CALC > 60 mL/min (>60); GLUCOSE,RANDOM 91 mg/dL (70-110); HCG,QUANTITATIVE < 1 mIU/mL (0-6); HDL CHOLESTEROL 31 mg/dL (40-60); LDL CHOL (CALC.) 155 mg/dL (0-130); POTASSIUM 4.2 mmol/L (3.5-5.1); SODIUM SERUM 142 mmol/L (136-145); THYROID STIMULATING HORMONE 5.11 uIU/mL (0.36-3.74); TOTAL PROTEIN, SERUM 6.8 g/dL (6.4-8.2); TRIGLYCERIDES 144 mg/dL (15-150); UREA NITROGEN, BLOOD 16 mg/dL (7-18)
[2019-07-10 08:39] LABS: HEMOGLOBIN A1C 5.7 % (4.5-6.2)
[2019-07-10 08:40] VITALS: BP 122/70
[2019-07-10] MEDS: SERTRALINE HCL 50 MG TABLET PO SCH (08:53)
[2019-07-10] MEDS: RisperiDONE 2 MG TABLET PO SCH ×2 (08:53→21:00)
[2019-07-10 16:04] VITALS: BP 107/66
[2019-07-10] MEDS: QUEtiapine FUMARATE 100 MG TABLET PO SCH (21:00)
[2019-07-10] MEDS: SIMVASTATIN 10 MG TABLET PO SCH (21:00)
[2019-07-10] MEDS: PRAZOSIN HCL 1 MG CAPSULE PO SCH (21:00)
[2019-07-11] MEDS: LEVOTHYROXINE SODIUM 50 MCG TABLET PO SCH (05:31)
[2019-07-11] MEDS: RisperiDONE 2 MG TABLET PO SCH ×2 (08:16→20:30)
[2019-07-11] MEDS: SERTRALINE HCL 50 MG TABLET PO SCH (08:16)
[2019-07-11 08:48] VITALS: BP 122/64
[2019-07-11 20:04] VITALS: BP 112/71
[2019-07-11] MEDS: SIMVASTATIN 10 MG TABLET PO SCH (20:30)
[2019-07-11] MEDS: QUEtiapine FUMARATE 100 MG TABLET PO SCH (20:30)
[2019-07-11] MEDS: PRAZOSIN HCL 1 MG CAPSULE PO SCH (20:30)
[2019-07-12 00:08] VITALS: BP 110/62
[2019-07-12] MEDS: LEVOTHYROXINE SODIUM 50 MCG TABLET PO SCH (06:18)
[2019-07-12 08:05] VITALS: BP 114/70
[2019-07-12] MEDS: RisperiDONE 2 MG TABLET PO SCH ×2 (08:08→20:31)
[2019-07-12] MEDS: SERTRALINE HCL 50 MG TABLET PO SCH (08:08)
[2019-07-12] MEDS ORDERED: PERMETHRIN 1% 60 ML LOTION TP ONE (09:30)
[2019-07-12 16:04] VITALS: BP 100/64
[2019-07-12 20:30] VITALS: BP 110/81
[2019-07-12] MEDS: SIMVASTATIN 10 MG TABLET PO SCH (20:31)
[2019-07-12] MEDS: PRAZOSIN HCL 1 MG CAPSULE PO SCH (20:31)
[2019-07-12] MEDS: QUEtiapine FUMARATE 100 MG TABLET PO SCH (20:31)
[2019-07-13 05:56] VITALS: BP 114/57
[2019-07-13] MEDS: LEVOTHYROXINE SODIUM 50 MCG TABLET PO SCH (06:11)
[2019-07-13 08:17] VITALS: BP 118/69
[2019-07-13] MEDS: RisperiDONE 2 MG TABLET PO SCH ×2 (08:27→20:11)
[2019-07-13] MEDS: SERTRALINE HCL 50 MG TABLET PO SCH (08:27)
[2019-07-13] MEDS: OLANZapine 5 MG TABLET PO SCH ×2 (12:31→16:11)
[2019-07-13 16:04] VITALS: BP 112/71
[2019-07-13] MEDS: PRAZOSIN HCL 1 MG CAPSULE PO SCH (20:12)
[2019-07-13] MEDS: SIMVASTATIN 10 MG TABLET PO SCH (20:12)
[2019-07-14 00:40] VITALS: BP 118/65
[2019-07-14] MEDS: LEVOTHYROXINE SODIUM 50 MCG TABLET PO SCH (06:23)
[2019-07-14 08:08] VITALS: BP 117/79
[2019-07-14] MEDS: OLANZapine 5 MG TABLET PO SCH ×2 (08:40→16:45)
[2019-07-14] MEDS: RisperiDONE 2 MG TABLET PO SCH ×2 (08:40→20:33)
[2019-07-14] MEDS: SERTRALINE HCL 50 MG TABLET PO SCH (08:40)
[2019-07-14 16:17] VITALS: BP 114/74
[2019-07-14] MEDS: SIMVASTATIN 10 MG TABLET PO SCH (20:33)
[2019-07-14] MEDS: PRAZOSIN HCL 1 MG CAPSULE PO SCH (20:33)
[2019-07-14 20:34] VITALS: BP 101/65
[2019-07-15 00:49] VITALS: BP 115/68
[2019-07-15] MEDS: LEVOTHYROXINE SODIUM 50 MCG TABLET PO SCH (06:45)
[2019-07-15 08:15] VITALS: BP 128/79
[2019-07-15] MEDS: SERTRALINE HCL 50 MG TABLET PO SCH (08:52)
[2019-07-15] MEDS: RisperiDONE 2 MG TABLET PO SCH ×2 (08:52→20:20)
[2019-07-15] MEDS: OLANZapine 5 MG TABLET PO SCH ×2 (08:52→16:18)
[2019-07-15 16:06] VITALS: BP 132/76
[2019-07-15] MEDS: SIMVASTATIN 10 MG TABLET PO SCH (20:20)
[2019-07-15] MEDS: PRAZOSIN HCL 1 MG CAPSULE PO SCH (20:20)
[2019-07-16 06:13] VITALS: BP 119/76
[2019-07-16] MEDS: LEVOTHYROXINE SODIUM 50 MCG TABLET PO SCH (06:45)
[2019-07-16 08:11] VITALS: BP 128/82
[2019-07-16] MEDS: RisperiDONE 2 MG TABLET PO SCH (09:11)
[2019-07-16] MEDS: SERTRALINE HCL 50 MG TABLET PO SCH (09:11)
[2019-07-16] MEDS: OLANZapine 5 MG TABLET PO SCH (09:11)
[2019-07-16] MEDS ORDERED: PRAZ1 PO (10:12)
[2019-07-16] MEDS ORDERED: OLAN5TAB2 PO (10:12)
== END 2019-07-16 11:00 | disposition home or self-care (01) | DRG 885 ==
LOC: B2X 13:48
PROVIDERS: ADMIT Psychiatry & Neurology Psychiatry; ATTEND Psychiatry & Neurology Psychiatry
PROC: 3E0234Z Introduction of Serum, Toxoid and Vaccine into Muscle, Percutaneous Approach (ICD-10-PCS; principal; 2019-07-09)
DX: F25.9 Schizoaffective disorder, unspecified (principal); Z23 Encounter for immunization; B85.0 Pediculosis due to Pediculus humanus capitis; E03.9 Hypothyroidism, unspecified; E78.5 Hyperlipidemia, unspecified; I10 Essential (primary) hypertension; K59.00 Constipation, unspecified; Z88.8 Allergy status to other drugs, medicaments and biological substances; F10.10 Alcohol abuse, uncomplicated; F41.9 Anxiety disorder, unspecified; R03.0 Elevated blood-pressure reading, without diagnosis of hypertension
CPT/HCPCS: 83036; 84439; 84443; 90686; 90732

== ENCOUNTER 2019-07-31 15:07 | Inpatient (IN) | payer MEDICARE, MEDICAID ==
[~2019-07-31] VITALS: Ht 160 cm; Wt 67.9 kg
[~2019-07-31 15:07] MED LIST changes: +OLAN5TAB2 PO; +PRAZ1 PO
[2019-07-31 16:12] VITALS: BP 135/96
[2019-07-31] MEDS ORDERED: LORazepam 2 MG TABLET PO PRN (16:30)
[2019-07-31] MEDS ORDERED: QUEtiapine FUMARATE 100 MG TABLET PO PRN (16:30)
[2019-07-31] MEDS ORDERED: ZOLPIDEM TARTRATE 10 MG TABLET PO PRN (16:30)
[2019-07-31 17:33] VITALS: BP 107/52
[2019-07-31] MEDS ORDERED: GuaiFENesin/D-METHORPHAN [SUGAR-FREE] 200-20MG/10 ML SYRUP UDCUP PO PRN (18:15)
[2019-07-31] MEDS ORDERED: INFLUENZA VIRUS VACCINE QVS 2019-20 (3YR+)/PF 60 MCG/0.5 ML SYRINGE IM ONE (19:45)
== END 2019-08-01 06:52 | disposition home or self-care (01) | DRG 885 ==
LOC: B2X 16:39
PROVIDERS: ADMIT Psychiatry & Neurology Psychiatry; ATTEND Psychiatry & Neurology Psychiatry
DX: F25.9 Schizoaffective disorder, unspecified (principal)
CPT/HCPCS: 87081

== ENCOUNTER 2019-07-31 20:31 | Inpatient (IN) | payer MEDICARE, OTHER ==
[~2019-07-31] VITALS: Ht 160 cm; Wt 68.5 kg
[2019-07-31] MEDS ORDERED: ACETAMINOPHEN 500 MG TABLET PO ONE (21:00)
[2019-07-31 21:23] LABS: BASOPHILS % (AUTO) 0.4 % (0.0-2.0); EOSINOPHILS % (AUTO) 0.3 % (1.0-6.0); HEMATOCRIT 38.5 % (36-46); HEMOGLOBIN 12.8 g/dL (12.0-16.0); LYMPHOCYTES # (AUTO) 0.5 K/uL (1.0-4.8); LYMPHOCYTES % (AUTO) 10.8 % (22.0-44.0); MEAN CORPUSCULAR HEMOGLOBIN 27.8 pg (26.0-34.0); MEAN CORPUSCULAR HGB CONC 33.2 G/dL (31.0-37.0); MEAN CORPUSCULAR VOLUME 84 fL (80-100); MONOCYTES # (AUTO) 0.7 K/uL (0.1-1.0); MONOCYTES % (AUTO) 15.8 % (2.0-9.0); NEUTROPHILS # (AUTO) 3.1 K/uL (1.8-7.7); NEUTROPHILS % (AUTO) 72.7 % (40.0-70.0); PLATELET COUNT (AUTO) 174 K/uL (150-450); RED BLOOD CELL COUNT(AUTO) 4.61 MIL/uL (4.00-5.20); RED CELL DISTRIBUTION WIDTH 14.8 % (11.5-14.5)
[2019-07-31 21:38] LABS: ANION GAP 10 mmol/L (8-16); CARBON DIOXIDE 27 mmol/L (22-29); CHLORIDE 103 mmol/L (98-107); CREATININE 0.91 mg/dL (0.60-1.30); GLOMERULAR FILTR. RATE CALC > 60 mL/min (>60); GLUCOSE,RANDOM 101 mg/dL (70-110); POTASSIUM 3.9 mmol/L (3.5-5.1); SODIUM SERUM 140 mmol/L (136-145); UREA NITROGEN, BLOOD 7 mg/dL (7-18)
[2019-07-31 21:49] LABS: ALANINE AMINOTRANSFERASE 20 U/L (12-78); ALBUMIN 3.7 g/dL (3.4-5.0); ALKALINE PHOSPHATASE 77 U/L (46-116); ASPARTATE AMINOTRANSFERASE 23 U/L (15-37); BILIRUBIN,TOTAL 0.2 mg/dL (0.1-1.0); HCG,QUANTITATIVE < 1 mIU/mL (0-6); LIPASE 132 U/L (73-393); TOTAL PROTEIN, SERUM 7.9 g/dL (6.4-8.2)
[2019-07-31 22:32] LABS: APPEARANCE,URINE CLEAR (CLEAR); BILIRUBIN,URINE NEGATIVE (NEGATIVE); GLUCOSE, URINE (UA) NEGATIVE (NEGATIVE); KETONES,URINE TRACE mg/dL (NEGATIVE); LEUKOCYTE ESTERASE ,URINE NEGATIVE (NEGATIVE); NITRATE,URINE NEGATIVE (NEGATIVE); OCCULT BLOOD,URINE NEGATIVE (NEGATIVE); PROTEIN,URINE NEGATIVE (NEGATIVE)
[2019-07-31 22:36] LABS: AMPHET/METH SCREEN,URINE NEGATIVE (NEGATIVE); BARBITURATE SCREEN, URINE NEGATIVE (NEGATIVE); BENZODIAZEPINES SCREEN,URINE NEGATIVE (NEGATIVE); CANNABINOID SCREEN,URINE NEGATIVE (NEGATIVE); COCAINE SCREEN,URINE NEGATIVE (NEGATIVE); METHADONE SCREEN, URINE NEGATIVE (NEGATIVE); OPIATE SCREEN,URINE NEGATIVE (NEGATIVE)
[2019-07-31 22:41] LABS: BACTERIA,URINE None Seen /HPF (None Seen); RBC,URINE 0-2 /HPF (0-2); SQUAMOUS EPITHELIAL CELL,UR Few /LPF (None Seen); WBC,URINE 0-2 /HPF (0-5)
[2019-07-31 22:45] LABS: PHENCYCLIDINE SCREEN,URINE NEGATIVE (NEGATIVE)
[2019-07-31 23:07] LABS: INFLUENZA TYPE A POSITIVE FOR TYPE A (NEGATIVE); INFLUENZA TYPE B NEGATIVE FOR TYPE B (NEGATIVE)
[2019-08-01] MEDS ORDERED: OSELTAMIVIR PHOSPHATE 75 MG CAPSULE PO ONE (00:30)
[2019-08-01 00:44] LABS: ABG CARBOXYHEMOGLOBIN 0.6 % (0.0-1.5); ABG HCO3 22.4 mmol/L (22.0-26.0); ABG METHEMOGLOBIN 0.1 % (0.0-1.5); ABG OXYGEN CONTENT 17.4 mL/dL (15.0-23.0); ABG OXYGEN SATURATION 97.9 % (95.0-98.0); ABG OXYHEMOGLOBIN 97.2 % (94.0-100.0); ABG PCO2 40 mmHg (35-45); ABG PH 7.366 (7.35-7.450); ABG TOTAL HEMOGLOBIN 12.6 G/dL (12.0-18.0); O2 DEVICE,BLOOD GAS CANNULA (ROOM AIR); PO2, ARTERIAL BG 126.5 mmHg (88.0-96.0); SITE, BLOOD GAS RT RADIAL; SOURCE, BLOOD GAS ARTERIAL
[2019-08-01] MEDS ORDERED: 0.9% SODIUM CHLORIDE 10 ML SYRINGE IVP PRN ×2 (06:15)
[2019-08-01] MEDS ORDERED: ACETAMINOPHEN 325 MG TABLET PO PRN ×3 (06:15→15:30)
[2019-08-01] MEDS ORDERED: ONDANSETRON HCL 4 MG/2 ML VIAL IVP PRN ×2 (06:15)
[2019-08-01 09:45] VITALS: BP 145/96
[2019-08-01 15:26] VITALS: BP 115/61
[2019-08-01] MEDS ORDERED: IPRATROPIUM BROMIDE 0.5 MG/2.5 ML NEB SOLUTION NEB PRN (15:30)
[2019-08-01] MEDS ORDERED: SODIUM CHLORIDE 0.9% 1,000 ML IV ONE (15:30)
[2019-08-01] MEDS ORDERED: HYDROCODONE/ACETAMINOPHEN 5-325 MG TABLET PO PRN (15:30)
[2019-08-01] MEDS ORDERED: ALBUTEROL SULFATE 2.5 MG/0.5 ML NEB SOLUTION NEB PRN (15:30)
[2019-08-01] MEDS ORDERED: BISACODYL 10 MG RECTAL RECTAL SUPPOSITORY PR PRN (15:30)
[2019-08-01] MEDS ORDERED: MORPHINE SULFATE 2 MG/ML SYRINGE IVP PRN (15:30)
[2019-08-01] MEDS ORDERED: MAGNESIUM HYDROXIDE SUSPENSION 30 ML UDCUP PO PRN (15:30)
[2019-08-01] MEDS ORDERED: ZOLPIDEM TARTRATE 5 MG TABLET PO PRN (15:30)
[2019-08-01] MEDS: HEPARIN SODIUM,PORCINE 5,000 UNITS/ML VIAL SQ SCH ×2 (15:57→23:38)
[2019-08-01] MEDS: LEVOFLOXACIN 750 MG/D5% WATER 150 ML IV SCH (16:32)
[2019-08-01 19:45] VITALS: BP 109/68
[2019-08-01] MEDS: RisperiDONE 2 MG TABLET PO SCH (20:20)
[2019-08-01] MEDS: DOCUSATE SODIUM 100 MG CAPSULE PO SCH (20:20)
[2019-08-01] MEDS: OSELTAMIVIR PHOSPHATE 75 MG CAPSULE PO SCH (20:20)
[2019-08-01] MEDS: PRAZOSIN HCL 1 MG CAPSULE PO SCH (20:20)
[2019-08-01] MEDS: ONDANSETRON HCL 4 MG/2 ML VIAL IVP PRN (20:26)
[2019-08-01] MEDS: SIMVASTATIN 10 MG TABLET PO SCH (21:12)
[2019-08-01] MEDS: OLANZapine 5 MG TABLET PO SCH (21:12)
[2019-08-02] VITALS (7 sets, daily range): BP systolic 97–118; BP diastolic 62–82
[2019-08-02] MEDS: ONDANSETRON HCL 4 MG/2 ML VIAL IVP PRN (04:58)
[2019-08-02] MEDS: LEVOTHYROXINE SODIUM 50 MCG TABLET PO SCH (05:58)
[2019-08-02 08:00] LABS: BASOPHILS % (AUTO) 0.5 % (0.0-2.0); EOSINOPHILS % (AUTO) 0.6 % (1.0-6.0); HEMATOCRIT 37.6 % (36-46); HEMOGLOBIN 12.6 g/dL (12.0-16.0); LYMPHOCYTES # (AUTO) 1.2 K/uL (1.0-4.8); MEAN CORPUSCULAR HEMOGLOBIN 28.5 pg (26.0-34.0); MEAN CORPUSCULAR HGB CONC 33.6 G/dL (31.0-37.0); MEAN CORPUSCULAR VOLUME 85 fL (80-100); MONOCYTES # (AUTO) 0.4 K/uL (0.1-1.0); MONOCYTES % (AUTO) 12.8 % (2.0-9.0); NEUTROPHILS # (AUTO) 1.5 K/uL (1.8-7.7); NEUTROPHILS % (AUTO) 48.1 % (40.0-70.0); PLATELET COUNT (AUTO) 186 K/uL (150-450); RED BLOOD CELL COUNT(AUTO) 4.43 MIL/uL (4.00-5.20); RED CELL DISTRIBUTION WIDTH 14.8 % (11.5-14.5)
[2019-08-02 08:14] LABS: ANION GAP 11 mmol/L (8-16); CALCIUM, TOTAL 8.7 mg/dL (8.8-10.5); CARBON DIOXIDE 28 mmol/L (22-29); CHLORIDE 104 mmol/L (98-107); CREATININE 0.68 mg/dL (0.60-1.30); GLOMERULAR FILTR. RATE CALC > 60 mL/min (>60); GLUCOSE,RANDOM 79 mg/dL (70-110); POTASSIUM 3.8 mmol/L (3.5-5.1); SODIUM SERUM 143 mmol/L (136-145); UREA NITROGEN, BLOOD 6 mg/dL (7-18)
[2019-08-02] MEDS: DOCUSATE SODIUM 100 MG CAPSULE PO SCH ×2 (08:35→19:51)
[2019-08-02] MEDS: RisperiDONE 2 MG TABLET PO SCH ×2 (08:35→19:51)
[2019-08-02] MEDS: PANTOPRAZOLE SODIUM 40 MG DR TABLET PO SCH (08:35)
[2019-08-02] MEDS: OSELTAMIVIR PHOSPHATE 75 MG CAPSULE PO SCH ×2 (08:36→19:51)
[2019-08-02] MEDS: SERTRALINE HCL 50 MG TABLET PO SCH (08:39)
[2019-08-02] MEDS: OLANZapine 5 MG TABLET PO SCH ×2 (08:39→19:51)
[2019-08-02] MEDS: HEPARIN SODIUM,PORCINE 5,000 UNITS/ML VIAL SQ SCH ×3 (08:43→23:33)
[2019-08-02] MEDS: LEVOFLOXACIN 750 MG/D5% WATER 150 ML IV SCH (16:42)
[2019-08-02] MEDS: PRAZOSIN HCL 1 MG CAPSULE PO SCH (19:51)
[2019-08-02] MEDS: SIMVASTATIN 10 MG TABLET PO SCH (19:51)
[2019-08-03 04:47] VITALS: BP 90/51
[2019-08-03] MEDS: LEVOTHYROXINE SODIUM 50 MCG TABLET PO SCH (06:21)
[2019-08-03 07:19] VITALS: BP 100/57
[2019-08-03 07:51] LABS: BASOPHILS % (AUTO) 0.3 % (0.0-2.0); EOSINOPHILS % (AUTO) 0.8 % (1.0-6.0); HEMATOCRIT 38.4 % (36-46); HEMOGLOBIN 12.8 g/dL (12.0-16.0); LYMPHOCYTES # (AUTO) 1.2 K/uL (1.0-4.8); LYMPHOCYTES % (AUTO) 41.8 % (22.0-44.0); MEAN CORPUSCULAR HEMOGLOBIN 27.9 pg (26.0-34.0); MEAN CORPUSCULAR HGB CONC 33.3 G/dL (31.0-37.0); MEAN CORPUSCULAR VOLUME 84 fL (80-100); MONOCYTES # (AUTO) 0.3 K/uL (0.1-1.0); MONOCYTES % (AUTO) 10.2 % (2.0-9.0); NEUTROPHILS # (AUTO) 1.3 K/uL (1.8-7.7); NEUTROPHILS % (AUTO) 46.9 % (40.0-70.0); PLATELET COUNT (AUTO) 192 K/uL (150-450); RED BLOOD CELL COUNT(AUTO) 4.59 MIL/uL (4.00-5.20); RED CELL DISTRIBUTION WIDTH 14.5 % (11.5-14.5)
[2019-08-03 08:06] LABS: ANION GAP 10 mmol/L (8-16); CARBON DIOXIDE 26 mmol/L (22-29); CHLORIDE 103 mmol/L (98-107); CREATININE 0.84 mg/dL (0.60-1.30); GLOMERULAR FILTR. RATE CALC > 60 mL/min (>60); GLUCOSE,RANDOM 87 mg/dL (70-110); SODIUM SERUM 139 mmol/L (136-145); UREA NITROGEN, BLOOD 9 mg/dL (7-18)
[2019-08-03] MEDS: OSELTAMIVIR PHOSPHATE 75 MG CAPSULE PO SCH (08:59)
[2019-08-03] MEDS: PANTOPRAZOLE SODIUM 40 MG DR TABLET PO SCH (08:59)
[2019-08-03] MEDS: SERTRALINE HCL 50 MG TABLET PO SCH (09:00)
[2019-08-03] MEDS: RisperiDONE 2 MG TABLET PO SCH (09:00)
[2019-08-03] MEDS: OLANZapine 5 MG TABLET PO SCH (09:00)
[2019-08-03] MEDS: DOCUSATE SODIUM 100 MG CAPSULE PO SCH (09:00)
[2019-08-03] MEDS: HEPARIN SODIUM,PORCINE 5,000 UNITS/ML VIAL SQ SCH (09:30)
[2019-08-03 11:06] VITALS: BP 97/56
[2019-08-03] MEDS ORDERED: LEVO250T75 PO (12:05)
[2019-08-03] MEDS ORDERED: OSEL75 PO (12:06)
== END 2019-08-03 14:20 | disposition home or self-care (01) | DRG 871 ==
LOC: EMS 20:33 → 6N 08-01 05:00
PROVIDERS: ADMIT Internal Medicine; ATTEND Internal Medicine
DX: A41.9 Sepsis, unspecified organism (principal); J11.00 Influenza due to unidentified influenza virus with unspecified type of pneumonia; R45.851 Suicidal ideations; E78.5 Hyperlipidemia, unspecified; E03.9 Hypothyroidism, unspecified; F29 Unspecified psychosis not due to a substance or known physiological condition; R09.02 Hypoxemia; F25.9 Schizoaffective disorder, unspecified; F41.9 Anxiety disorder, unspecified; Z88.8 Allergy status to other drugs, medicaments and biological substances; Z79.899 Other long term (current) drug therapy
CPT/HCPCS: 36600; 82805; 87040; 87804; G0480; J1644; J1956; J2405; J7030

== ENCOUNTER 2019-09-17 16:58 | Emergency (ER) | payer MEDICARE, OTHER ==
[~2019-09-17] VITALS: Ht 157.5 cm; Wt 77.3 kg
[~2019-09-17 16:58] MED LIST changes: +LEVO250T75 PO; +OSEL75 PO
[2019-09-17] MEDS ORDERED: RisperiDONE 1 MG TABLET PO ONE (17:30)
[2019-09-17 17:39] LABS: BASOPHILS % (AUTO) 0.2 % (0.0-2.0); EOSINOPHILS % (AUTO) 1.6 % (1.0-6.0); HEMOGLOBIN 13.2 g/dL (12.0-16.0); LYMPHOCYTES # (AUTO) 1.8 K/uL (1.0-4.8); LYMPHOCYTES % (AUTO) 22.1 % (22.0-44.0); MEAN CORPUSCULAR HEMOGLOBIN 27.5 pg (26.0-34.0); MEAN CORPUSCULAR VOLUME 83 fL (80-100); MONOCYTES # (AUTO) 0.7 K/uL (0.1-1.0); MONOCYTES % (AUTO) 8.7 % (2.0-9.0); NEUTROPHILS # (AUTO) 5.5 K/uL (1.8-7.7); NEUTROPHILS % (AUTO) 67.4 % (40.0-70.0); PLATELET COUNT (AUTO) 249 K/uL (150-450)
[2019-09-17 17:57] LABS: ANION GAP 10 mmol/L (8-16); CALCIUM, TOTAL 8.9 mg/dL (8.8-10.5); CARBON DIOXIDE 28 mmol/L (22-29); CHLORIDE 105 mmol/L (98-107); CREATININE 1.09 mg/dL (0.60-1.30); GLOMERULAR FILTR. RATE CALC 56 mL/min (>60); GLUCOSE,RANDOM 122 mg/dL (70-110); POTASSIUM 3.8 mmol/L (3.5-5.1); SODIUM SERUM 143 mmol/L (136-145); UREA NITROGEN, BLOOD 12 mg/dL (7-18)
[2019-09-17 18:02] LABS: ALANINE AMINOTRANSFERASE 29 U/L (12-78); ALBUMIN 3.9 g/dL (3.4-5.0); ALKALINE PHOSPHATASE 105 U/L (46-116); ASPARTATE AMINOTRANSFERASE 21 U/L (15-37); BILIRUBIN,TOTAL 0.3 mg/dL (0.1-1.0); TOTAL PROTEIN, SERUM 8.1 g/dL (6.4-8.2)
[2019-09-17 21:29] VITALS: BP 100/62
== END 2019-09-17 21:46 | disposition home or self-care (01) ==
LOC: EMS 17:00
DX: F20.0 Paranoid schizophrenia (principal); F31.9 Bipolar disorder, unspecified; F41.9 Anxiety disorder, unspecified; Z88.8 Allergy status to other drugs, medicaments and biological substances
CPT/HCPCS: 80053; 85025; 99284; G0480

== ENCOUNTER 2019-09-18 10:05 | Inpatient (IN) | payer MEDICARE, MEDICAID ==
[~2019-09-18] VITALS: Ht 160 cm; Wt 71.9 kg
[~2019-09-18 10:05] MED LIST changes: -LEVO250T75 PO; -OSEL75 PO
[2019-09-18 11:29] VITALS: BP 129/75
[2019-09-18] MEDS ORDERED: ZOLPIDEM TARTRATE 10 MG TABLET PO PRN (11:45)
[2019-09-18] MEDS ORDERED: QUEtiapine FUMARATE 100 MG TABLET PO PRN (11:45)
[2019-09-18] MEDS ORDERED: LORazepam 2 MG TABLET PO PRN (11:45)
[2019-09-18 12:30] VITALS: BP 129/79
[2019-09-18] MEDS ORDERED: INFLUENZA VIRUS VACCINE QVS 2019-20 (3YR+)/PF 60 MCG/0.5 ML SYRINGE IM ONE (12:45)
[2019-09-18] MEDS ORDERED: -PHARMACY VACCINE NOTE- MISC ONE (12:45)
[2019-09-18] MEDS ORDERED: NICOTINE 14 MG/24 HOUR PATCH TD PRN (14:45)
[2019-09-18] MEDS ORDERED: LOPERAMIDE HCL 2 MG CAPSULE PO PRN (14:45)
[2019-09-18] MEDS ORDERED: ONDANSETRON HCL 4 MG TABLET PO PRN (14:45)
[2019-09-18] MEDS ORDERED: CloNIDine HCL 0.1 MG TABLET PO PRN (14:45)
[2019-09-18] MEDS ORDERED: MAG HYDROX/AL HYDROX/SIMETH ES 30 ML SUSPENSION UDCUP PO PRN (14:45)
[2019-09-18] MEDS ORDERED: PETROLATUM,WHITE 28 GM JELLY TP PRN (14:45)
[2019-09-18] MEDS ORDERED: ACETAMINOPHEN 325 MG TABLET PO PRN (14:45)
[2019-09-18] MEDS ORDERED: ALBUTEROL SULFATE HFA 90 MCG/PUFF 8 GM INHALER IH PRN (14:45)
[2019-09-18] MEDS ORDERED: DOCUSATE SODIUM 100 MG CAPSULE PO PRN (14:45)
[2019-09-18] MEDS ORDERED: GuaiFENesin/D-METHORPHAN [SUGAR-FREE] 200-20MG/10 ML SYRUP UDCUP PO PRN (14:45)
[2019-09-18] MEDS ORDERED: MAGNESIUM HYDROXIDE SUSPENSION 30 ML UDCUP PO PRN (14:45)
[2019-09-18 16:31] VITALS: BP 110/68
[2019-09-18] MEDS: IBUPROFEN 400 MG TABLET PO PRN (16:35)
[2019-09-18] MEDS: BACITRACIN 28.4 GM OINTMENT TP SCH (17:00)
[2019-09-18] MEDS ORDERED: SIMVASTATIN 10 MG TABLET PO SCH (21:00)
[2019-09-19] MEDS ORDERED: LEVOTHYROXINE SODIUM 50 MCG TABLET PO SCH (06:30)
[2019-09-19 07:57] LABS: BASOPHILS % (AUTO) 0.4 % (0.0-2.0); EOSINOPHILS % (AUTO) 2.1 % (1.0-6.0); HEMATOCRIT 40.1 % (36-46); HEMOGLOBIN 13.3 g/dL (12.0-16.0); LYMPHOCYTES % (AUTO) 23.7 % (22.0-44.0); MEAN CORPUSCULAR HEMOGLOBIN 27.8 pg (26.0-34.0); MEAN CORPUSCULAR VOLUME 84 fL (80-100); MONOCYTES # (AUTO) 0.3 K/uL (0.1-1.0); MONOCYTES % (AUTO) 7.2 % (2.0-9.0); NEUTROPHILS % (AUTO) 66.6 % (40.0-70.0); PLATELET COUNT (AUTO) 239 K/uL (150-450); RED BLOOD CELL COUNT(AUTO) 4.78 MIL/uL (4.00-5.20); RED CELL DISTRIBUTION WIDTH 15.5 % (11.5-14.5)
[2019-09-19 08:13] VITALS: BP 108/56
[2019-09-19 08:28] LABS: ALBUMIN 3.4 g/dL (3.4-5.0); BILIRUBIN,TOTAL 0.3 mg/dL (0.1-1.0); CHOL/HDL RATIO 6.9 (3.9-5.7); CREATININE 1.07 mg/dL (0.60-1.30); FREE T4 (FREE THYROXINE) 1.03 ng/dL (0.76-1.46); POTASSIUM 3.7 mmol/L (3.5-5.1); THYROID STIMULATING HORMONE 1.79 uIU/mL (0.36-3.74); TOTAL PROTEIN, SERUM 7.3 g/dL (6.4-8.2)
[2019-09-19 08:31] LABS: HEMOGLOBIN A1C 5.8 % (3.8-5.6)
[2019-09-19] MEDS: BACITRACIN 28.4 GM OINTMENT TP SCH (09:07)
[2019-09-19 12:58] LABS: APPEARANCE,URINE CLOUDY (CLEAR); BILIRUBIN,URINE NEGATIVE (NEGATIVE); GLUCOSE, URINE (UA) NEGATIVE (NEGATIVE); KETONES,URINE NEGATIVE (NEGATIVE); LEUKOCYTE ESTERASE ,URINE LARGE (NEGATIVE); NITRATE,URINE NEGATIVE (NEGATIVE); OCCULT BLOOD,URINE NEGATIVE (NEGATIVE); PH,URINE 6.5 (5.0-8.0); PROTEIN,URINE NEGATIVE (NEGATIVE); UROBILINOGEN,URINE 0.2 mg/dL (<=1.0)
[2019-09-19 13:04] LABS: AMPHET/METH SCREEN,URINE NEGATIVE (NEGATIVE); BARBITURATE SCREEN, URINE NEGATIVE (NEGATIVE); BENZODIAZEPINES SCREEN,URINE NEGATIVE (NEGATIVE); CANNABINOID SCREEN,URINE NEGATIVE (NEGATIVE); COCAINE SCREEN,URINE NEGATIVE (NEGATIVE); METHADONE SCREEN, URINE NEGATIVE (NEGATIVE); OPIATE SCREEN,URINE NEGATIVE (NEGATIVE)
[2019-09-19 13:07] LABS: PHENCYCLIDINE SCREEN,URINE NEGATIVE (NEGATIVE)
[2019-09-19 13:09] LABS: RBC,URINE None Seen /HPF (0-2)
[2019-09-19 13:10] LABS: BACTERIA,URINE Moderate /HPF (None Seen); RENAL EPITHELIAL CELLS,URINE Rare /LPF (None Seen); SQUAMOUS EPITHELIAL CELL,UR Many /LPF (None Seen)
[2019-09-19 13:11] LABS: INFLUENZA TYPE A NEGATIVE FOR TYPE A (NEGATIVE); INFLUENZA TYPE B NEGATIVE FOR TYPE B (NEGATIVE)
[2019-09-19] MEDS ORDERED: SERTRALINE HCL 50 MG TABLET PO SCH (15:15)
[2019-09-19] MEDS: IBUPROFEN 400 MG TABLET PO PRN (16:28)
[2019-09-19] MEDS ORDERED: RisperiDONE 2 MG TABLET PO SCH (21:00)
[2019-09-20] MEDS ORDERED: LORATADINE 10 MG TABLET PO SCH (09:00)
== END 2019-09-19 16:05 | disposition home or self-care (01) | DRG 885 ==
LOC: B2X 11:50 → 6N 09-19 15:31 → B2X 09-19 15:59
PROVIDERS: ATTEND Psychiatry & Neurology Child & Adolescent Psychiatry
DX: F25.0 Schizoaffective disorder, bipolar type (principal); F41.9 Anxiety disorder, unspecified
CPT/HCPCS: 80307; 83036; 84439; 84443; 87081; 87086; 87804; 90686; G0480; Q0162

== ENCOUNTER 2019-09-19 15:30 | Inpatient (IN) | payer MEDICARE, OTHER ==
[2019-09-19 15:30] VITALS: BP 116/74
[2019-09-19] MEDS ORDERED: -PHARMACY VACCINE NOTE- MISC ONE (19:00)
[2019-09-19] MEDS ORDERED: ZOLPIDEM TARTRATE 5 MG TABLET PO PRN (19:15)
[2019-09-19] MEDS ORDERED: BISACODYL 10 MG RECTAL RECTAL SUPPOSITORY PR PRN (19:15)
[2019-09-19] MEDS ORDERED: ACETAMINOPHEN 325 MG TABLET PO PRN (19:15)
[2019-09-19] MEDS ORDERED: MORPHINE SULFATE 2 MG/ML SYRINGE IVP PRN (19:15)
[2019-09-19] MEDS ORDERED: MAGNESIUM HYDROXIDE SUSPENSION 30 ML UDCUP PO PRN (19:15)
[2019-09-19] MEDS ORDERED: ONDANSETRON HCL 4 MG/2 ML VIAL IVP PRN (19:15)
[2019-09-19 20:05] VITALS: BP 108/65
[2019-09-19] MEDS: RisperiDONE 2 MG TABLET PO SCH (21:18)
[2019-09-19] MEDS: DOCUSATE SODIUM 100 MG CAPSULE PO SCH (21:18)
[2019-09-19] MEDS: PRAZOSIN HCL 1 MG CAPSULE PO SCH (21:18)
[2019-09-19] MEDS: SIMVASTATIN 10 MG TABLET PO SCH (21:18)
[2019-09-19] MEDS: HEPARIN SODIUM,PORCINE 5,000 UNITS/ML VIAL SQ SCH (23:24)
[2019-09-19 23:30] VITALS: BP 112/67
[2019-09-20 04:45] VITALS: BP 105/72
[2019-09-20] MEDS: LEVOTHYROXINE SODIUM 50 MCG TABLET PO SCH (06:34)
[2019-09-20 07:25] VITALS: BP 110/74
[2019-09-20] MEDS: HEPARIN SODIUM,PORCINE 5,000 UNITS/ML VIAL SQ SCH ×3 (08:42→23:59)
[2019-09-20] MEDS: PANTOPRAZOLE SODIUM 40 MG DR TABLET PO SCH (08:43)
[2019-09-20] MEDS: DOCUSATE SODIUM 100 MG CAPSULE PO SCH ×2 (08:43→20:42)
[2019-09-20] MEDS: SERTRALINE HCL 50 MG TABLET PO SCH (08:43)
[2019-09-20] MEDS: RisperiDONE 2 MG TABLET PO SCH ×2 (08:43→20:42)
[2019-09-20] MEDS: HYDROCODONE/ACETAMINOPHEN 5-325 MG TABLET PO PRN ×2 (08:43→20:43)
[2019-09-20 09:18] LABS: BASOPHILS % (AUTO) 0.5 % (0.0-2.0); EOSINOPHILS % (AUTO) 1.9 % (1.0-6.0); HEMATOCRIT 39.5 % (36-46); HEMOGLOBIN 13.2 g/dL (12.0-16.0); LYMPHOCYTES # (AUTO) 1.7 K/uL (1.0-4.8); LYMPHOCYTES % (AUTO) 32.7 % (22.0-44.0); MEAN CORPUSCULAR HGB CONC 33.5 G/dL (31.0-37.0); MEAN CORPUSCULAR VOLUME 84 fL (80-100); MONOCYTES # (AUTO) 0.4 K/uL (0.1-1.0); MONOCYTES % (AUTO) 8.8 % (2.0-9.0); NEUTROPHILS # (AUTO) 2.9 K/uL (1.8-7.7); NEUTROPHILS % (AUTO) 56.1 % (40.0-70.0); PLATELET COUNT (AUTO) 245 K/uL (150-450); RED BLOOD CELL COUNT(AUTO) 4.72 MIL/uL (4.00-5.20); RED CELL DISTRIBUTION WIDTH 15.2 % (11.5-14.5)
[2019-09-20 09:36] LABS: ANION GAP 2 mmol/L (8-16); CALCIUM, TOTAL 8.6 mg/dL (8.8-10.5); CARBON DIOXIDE 31 mmol/L (22-29); CHLORIDE 104 mmol/L (98-107); CREATININE 0.97 mg/dL (0.60-1.30); GLOMERULAR FILTR. RATE CALC > 60 mL/min (>60); GLUCOSE,RANDOM 95 mg/dL (70-110); POTASSIUM 4.4 mmol/L (3.5-5.1); SODIUM SERUM 137 mmol/L (136-145); UREA NITROGEN, BLOOD 11 mg/dL (7-18)
[2019-09-20 10:00] LABS: INFLUENZA TYPE A NEGATIVE FOR TYPE A (NEGATIVE); INFLUENZA TYPE B NEGATIVE FOR TYPE B (NEGATIVE)
[2019-09-20 11:13] VITALS: BP 100/72
[2019-09-20 15:18] VITALS: BP 104/76
[2019-09-20 20:00] VITALS: BP 117/82
[2019-09-20] MEDS: SIMVASTATIN 10 MG TABLET PO SCH (20:42)
[2019-09-20] MEDS: PRAZOSIN HCL 1 MG CAPSULE PO SCH (20:42)
[2019-09-21] VITALS (7 sets, daily range): BP systolic 98–131; BP diastolic 51–91
[2019-09-21] MEDS: LEVOTHYROXINE SODIUM 50 MCG TABLET PO SCH (06:28)
[2019-09-21 07:39] LABS: BASOPHILS % (AUTO) 0.5 % (0.0-2.0); EOSINOPHILS % (AUTO) 1.8 % (1.0-6.0); HEMATOCRIT 40.3 % (36-46); HEMOGLOBIN 13.3 g/dL (12.0-16.0); LYMPHOCYTES # (AUTO) 1.4 K/uL (1.0-4.8); LYMPHOCYTES % (AUTO) 31.3 % (22.0-44.0); MEAN CORPUSCULAR HEMOGLOBIN 27.7 pg (26.0-34.0); MEAN CORPUSCULAR VOLUME 84 fL (80-100); MONOCYTES # (AUTO) 0.2 K/uL (0.1-1.0); MONOCYTES % (AUTO) 5.3 % (2.0-9.0); NEUTROPHILS # (AUTO) 2.7 K/uL (1.8-7.7); NEUTROPHILS % (AUTO) 61.1 % (40.0-70.0); PLATELET COUNT (AUTO) 242 K/uL (150-450); RED BLOOD CELL COUNT(AUTO) 4.79 MIL/uL (4.00-5.20); RED CELL DISTRIBUTION WIDTH 15.3 % (11.5-14.5)
[2019-09-21 07:48] LABS: ANION GAP 7 mmol/L (8-16); CALCIUM, TOTAL 9.5 mg/dL (8.8-10.5); CARBON DIOXIDE 30 mmol/L (22-29); CHLORIDE 99 mmol/L (98-107); CREATININE 0.91 mg/dL (0.60-1.30); GLOMERULAR FILTR. RATE CALC > 60 mL/min (>60); GLUCOSE,RANDOM 134 mg/dL (70-110); SODIUM SERUM 136 mmol/L (136-145); UREA NITROGEN, BLOOD 8 mg/dL (7-18)
[2019-09-21] MEDS: PANTOPRAZOLE SODIUM 40 MG DR TABLET PO SCH (09:03)
[2019-09-21] MEDS: HEPARIN SODIUM,PORCINE 5,000 UNITS/ML VIAL SQ SCH ×3 (09:03→23:16)
[2019-09-21] MEDS: RisperiDONE 2 MG TABLET PO SCH ×2 (09:03→20:41)
[2019-09-21] MEDS: CITALOPRAM HYDROBROMIDE 20 MG TABLET PO SCH (09:03)
[2019-09-21] MEDS: SERTRALINE HCL 50 MG TABLET PO SCH (09:03)
[2019-09-21] MEDS: DOCUSATE SODIUM 100 MG CAPSULE PO SCH ×2 (09:03→20:42)
[2019-09-21] MEDS: HYDROCODONE/ACETAMINOPHEN 5-325 MG TABLET PO PRN ×2 (09:03→20:43)
[2019-09-21] MEDS: PRAZOSIN HCL 1 MG CAPSULE PO SCH (20:41)
[2019-09-21] MEDS: SIMVASTATIN 10 MG TABLET PO SCH (20:42)
[2019-09-22 05:46] VITALS: BP 108/77
[2019-09-22] MEDS: LEVOTHYROXINE SODIUM 50 MCG TABLET PO SCH (05:55)
[2019-09-22 07:31] VITALS: BP 117/78
[2019-09-22] MEDS: HYDROCODONE/ACETAMINOPHEN 5-325 MG TABLET PO PRN (08:16)
[2019-09-22] MEDS: CITALOPRAM HYDROBROMIDE 20 MG TABLET PO SCH (08:16)
[2019-09-22] MEDS: ARIPiprazole 10 MG TABLET PO SCH (08:16)
[2019-09-22] MEDS: SERTRALINE HCL 50 MG TABLET PO SCH (08:16)
[2019-09-22] MEDS: RisperiDONE 2 MG TABLET PO SCH ×2 (08:16→20:07)
[2019-09-22] MEDS: HEPARIN SODIUM,PORCINE 5,000 UNITS/ML VIAL SQ SCH ×3 (08:16→23:39)
[2019-09-22] MEDS: PANTOPRAZOLE SODIUM 40 MG DR TABLET PO SCH (08:16)
[2019-09-22] MEDS: DOCUSATE SODIUM 100 MG CAPSULE PO SCH ×2 (08:17→20:07)
[2019-09-22 12:02] VITALS: BP 107/76
[2019-09-22 15:48] VITALS: BP 93/63
[2019-09-22] MEDS: SIMVASTATIN 10 MG TABLET PO SCH (20:07)
[2019-09-22] MEDS: PRAZOSIN HCL 1 MG CAPSULE PO SCH (20:07)
[2019-09-22 20:12] VITALS: BP 110/74
[2019-09-22 23:43] VITALS: BP 119/68
[2019-09-23 05:02] VITALS: BP 112/82
[2019-09-23] MEDS: LEVOTHYROXINE SODIUM 50 MCG TABLET PO SCH (06:15)
[2019-09-23 08:28] LABS: BASOPHILS % (AUTO) 0.3 % (0.0-2.0); HEMATOCRIT 38.5 % (36-46); HEMOGLOBIN 12.9 g/dL (12.0-16.0); LYMPHOCYTES # (AUTO) 1.3 K/uL (1.0-4.8); MEAN CORPUSCULAR HEMOGLOBIN 28.2 pg (26.0-34.0); MEAN CORPUSCULAR HGB CONC 33.6 G/dL (31.0-37.0); MEAN CORPUSCULAR VOLUME 84 fL (80-100); MONOCYTES # (AUTO) 0.4 K/uL (0.1-1.0); MONOCYTES % (AUTO) 7.9 % (2.0-9.0); NEUTROPHILS # (AUTO) 3.8 K/uL (1.8-7.7); NEUTROPHILS % (AUTO) 67.8 % (40.0-70.0); PLATELET COUNT (AUTO) 247 K/uL (150-450); RED BLOOD CELL COUNT(AUTO) 4.58 MIL/uL (4.00-5.20); RED CELL DISTRIBUTION WIDTH 15.1 % (11.5-14.5)
[2019-09-23 08:48] LABS: ANION GAP 7 mmol/L (8-16); CALCIUM, TOTAL 9.3 mg/dL (8.8-10.5); CARBON DIOXIDE 30 mmol/L (22-29); CHLORIDE 100 mmol/L (98-107); CREATININE 0.89 mg/dL (0.60-1.30); GLOMERULAR FILTR. RATE CALC > 60 mL/min (>60); GLUCOSE,RANDOM 99 mg/dL (70-110); POTASSIUM 4.4 mmol/L (3.5-5.1); SODIUM SERUM 137 mmol/L (136-145); UREA NITROGEN, BLOOD 14 mg/dL (7-18)
[2019-09-23] MEDS: HEPARIN SODIUM,PORCINE 5,000 UNITS/ML VIAL SQ SCH ×2 (08:55→16:46)
[2019-09-23] MEDS: SERTRALINE HCL 50 MG TABLET PO SCH (08:56)
[2019-09-23] MEDS: DOCUSATE SODIUM 100 MG CAPSULE PO SCH ×2 (08:56→20:49)
[2019-09-23] MEDS: CITALOPRAM HYDROBROMIDE 20 MG TABLET PO SCH (08:56)
[2019-09-23] MEDS: PANTOPRAZOLE SODIUM 40 MG DR TABLET PO SCH (08:56)
[2019-09-23] MEDS: ARIPiprazole 10 MG TABLET PO SCH (08:56)
[2019-09-23] MEDS: RisperiDONE 2 MG TABLET PO SCH ×2 (08:58→20:49)
[2019-09-23 16:22] VITALS: BP 96/61
[2019-09-23 19:41] VITALS: BP 93/55
[2019-09-23] MEDS: SIMVASTATIN 10 MG TABLET PO SCH (20:49)
[2019-09-23] MEDS: PRAZOSIN HCL 1 MG CAPSULE PO SCH (20:49)
[2019-09-24] VITALS: BP 100/87
[2019-09-24] MEDS: HEPARIN SODIUM,PORCINE 5,000 UNITS/ML VIAL SQ SCH ×3 (00:55→15:47)
[2019-09-24 04:20] VITALS: BP 112/78
[2019-09-24] MEDS: LEVOTHYROXINE SODIUM 50 MCG TABLET PO SCH (06:06)
[2019-09-24 08:00] VITALS: BP 109/68
[2019-09-24] MEDS: SERTRALINE HCL 50 MG TABLET PO SCH (08:36)
[2019-09-24] MEDS: PANTOPRAZOLE SODIUM 40 MG DR TABLET PO SCH (08:36)
[2019-09-24] MEDS: ARIPiprazole 10 MG TABLET PO SCH (08:36)
[2019-09-24] MEDS: CITALOPRAM HYDROBROMIDE 20 MG TABLET PO SCH (08:37)
[2019-09-24] MEDS: RisperiDONE 2 MG TABLET PO SCH ×2 (08:37→22:08)
[2019-09-24] MEDS: DOCUSATE SODIUM 100 MG CAPSULE PO SCH ×2 (08:38→22:07)
[2019-09-24 12:36] VITALS: BP 121/82
[2019-09-24 16:39] VITALS: BP 127/78
[2019-09-24 20:16] VITALS: BP 125/75
[2019-09-24] MEDS: SIMVASTATIN 10 MG TABLET PO SCH (22:08)
[2019-09-24] MEDS: PRAZOSIN HCL 1 MG CAPSULE PO SCH (22:08)
[2019-09-25 00:09] VITALS: BP 119/74
[2019-09-25 04:58] VITALS: BP 121/63
[2019-09-25 07:55] VITALS: BP 117/88
[2019-09-25] MEDS: ARIPiprazole 10 MG TABLET PO SCH (08:17)
[2019-09-25] MEDS: HEPARIN SODIUM,PORCINE 5,000 UNITS/ML VIAL SQ SCH ×4 (08:17→23:50)
[2019-09-25] MEDS: CITALOPRAM HYDROBROMIDE 20 MG TABLET PO SCH (08:18)
[2019-09-25] MEDS: RisperiDONE 2 MG TABLET PO SCH ×2 (08:18→20:04)
[2019-09-25] MEDS: SERTRALINE HCL 50 MG TABLET PO SCH (08:18)
[2019-09-25] MEDS: PANTOPRAZOLE SODIUM 40 MG DR TABLET PO SCH (08:18)
[2019-09-25] MEDS: DOCUSATE SODIUM 100 MG CAPSULE PO SCH ×2 (08:19→20:04)
[2019-09-25 11:45] VITALS: BP 111/81
[2019-09-25 16:16] VITALS: BP 116/81
[2019-09-25 20:00] VITALS: BP 119/75
[2019-09-25] MEDS: SIMVASTATIN 10 MG TABLET PO SCH (20:04)
[2019-09-25] MEDS: PRAZOSIN HCL 1 MG CAPSULE PO SCH (20:04)
[2019-09-26] VITALS: BP 113/71
[2019-09-26 04:00] VITALS: BP 123/78
[2019-09-26] MEDS: LEVOTHYROXINE SODIUM 50 MCG TABLET PO SCH ×2 (06:12→06:30)
[2019-09-26 07:31] VITALS: BP 113/79
[2019-09-26] MEDS: HEPARIN SODIUM,PORCINE 5,000 UNITS/ML VIAL SQ SCH ×2 (08:56→16:37)
[2019-09-26] MEDS: CITALOPRAM HYDROBROMIDE 20 MG TABLET PO SCH (08:56)
[2019-09-26] MEDS: DOCUSATE SODIUM 100 MG CAPSULE PO SCH (08:56)
[2019-09-26] MEDS: ARIPiprazole 10 MG TABLET PO SCH (08:56)
[2019-09-26] MEDS: RisperiDONE 2 MG TABLET PO SCH (08:57)
[2019-09-26] MEDS: PANTOPRAZOLE SODIUM 40 MG DR TABLET PO SCH (08:57)
[2019-09-26 11:41] VITALS: BP 117/80
[2019-09-26] MEDS ORDERED: ARIP10TA8 PO (13:11)
[2019-09-26] MEDS ORDERED: CITA10TA68 PO (13:12)
[2019-09-26] MEDS ORDERED: DOCU-119 PO (13:12)
[2019-09-26 15:31] VITALS: BP 127/86
== END 2019-09-26 18:05 | DRG 153 ==
LOC: 6N 15:30 → UNDODISIN 09-26 18:05
PROVIDERS: ADMIT Internal Medicine; ATTEND Internal Medicine
DX: J06.9 Acute upper respiratory infection, unspecified (principal); R45.851 Suicidal ideations; J40 Bronchitis, not specified as acute or chronic; E03.9 Hypothyroidism, unspecified; E78.5 Hyperlipidemia, unspecified
CPT/HCPCS: 87635; 87804; J1644

== ENCOUNTER 2019-10-31 17:13 | Inpatient (IN) | payer MEDICARE, MEDICAID ==
[~2019-10-31] VITALS: Ht 160 cm; Wt 68.6 kg
[~2019-10-31 17:13] MED LIST changes: +ACID1GRA PO; +ARIP10TA8 PO; +CITA10TA68 PO; +METR500 PO; -OLAN5TAB2 PO; -PRAZ1 PO; -RISP2 PO; -SERT50TA12 PO
[2019-10-31 18:02] LABS: BASOPHILS % (AUTO) 0.3 % (0.0-2.0); EOSINOPHILS % (AUTO) 1.2 % (1.0-6.0); HEMATOCRIT 42.3 % (36-46); HEMOGLOBIN 13.8 g/dL (12.0-16.0); LYMPHOCYTES # (AUTO) 1.5 K/uL (1.0-4.8); LYMPHOCYTES % (AUTO) 20.2 % (22.0-44.0); MEAN CORPUSCULAR HEMOGLOBIN 27.2 pg (26.0-34.0); MEAN CORPUSCULAR HGB CONC 32.6 G/dL (31.0-37.0); MEAN CORPUSCULAR VOLUME 84 fL (80-100); MONOCYTES # (AUTO) 0.5 K/uL (0.1-1.0); MONOCYTES % (AUTO) 6.5 % (2.0-9.0); NEUTROPHILS # (AUTO) 5.5 K/uL (1.8-7.7); NEUTROPHILS % (AUTO) 71.8 % (40.0-70.0); PLATELET COUNT (AUTO) 242 K/uL (150-450); RED BLOOD CELL COUNT(AUTO) 5.07 MIL/uL (4.00-5.20); RED CELL DISTRIBUTION WIDTH 15.7 % (11.5-14.5)
[2019-10-31 18:12] LABS: ANION GAP 10 mmol/L (8-16); CALCIUM, TOTAL 9.6 mg/dL (8.8-10.5); CARBON DIOXIDE 26 mmol/L (22-29); CHLORIDE 102 mmol/L (98-107); CREATININE 0.92 mg/dL (0.60-1.30); GLOMERULAR FILTR. RATE CALC > 60 mL/min (>60); GLUCOSE,RANDOM 98 mg/dL (70-110); POTASSIUM 4.1 mmol/L (3.5-5.1); SODIUM SERUM 138 mmol/L (136-145); UREA NITROGEN, BLOOD 9 mg/dL (7-18)
[2019-10-31 18:18] LABS: ALANINE AMINOTRANSFERASE 31 U/L (12-78); ALBUMIN 4.2 g/dL (3.4-5.0); ALKALINE PHOSPHATASE 95 U/L (46-116); ASPARTATE AMINOTRANSFERASE 21 U/L (15-37); BILIRUBIN,TOTAL 0.2 mg/dL (0.1-1.0); TOTAL PROTEIN, SERUM 8.6 g/dL (6.4-8.2)
[2019-10-31] MEDS ORDERED: QUEtiapine FUMARATE 100 MG TABLET PO ONE (19:30)
[2019-10-31] MEDS ORDERED: PERMETHRIN 5% 60 GM CREAM TP ONE (19:30)
[2019-10-31] MEDS ORDERED: LORazepam 1 MG TABLET PO ONE (19:30)
[2019-10-31] MEDS ORDERED: LORazepam 2 MG TABLET PO PRN (20:30)
[2019-10-31] MEDS ORDERED: ZOLPIDEM TARTRATE 10 MG TABLET PO PRN (20:30)
[2019-10-31] MEDS ORDERED: QUEtiapine FUMARATE 100 MG TABLET PO PRN (20:30)
[2019-10-31 20:49] LABS: AMPHET/METH SCREEN,URINE NEGATIVE (NEGATIVE); BARBITURATE SCREEN, URINE NEGATIVE (NEGATIVE); BENZODIAZEPINES SCREEN,URINE NEGATIVE (NEGATIVE); CANNABINOID SCREEN,URINE NEGATIVE (NEGATIVE); COCAINE SCREEN,URINE NEGATIVE (NEGATIVE); METHADONE SCREEN, URINE NEGATIVE (NEGATIVE); OPIATE SCREEN,URINE NEGATIVE (NEGATIVE); PHENCYCLIDINE SCREEN,URINE NEGATIVE (NEGATIVE)
[2019-10-31 20:55] LABS: HCG,QUANTITATIVE 1 mIU/mL (0-6)
[2019-10-31 22:36] VITALS: BP 122/72
[2019-11-01] MEDS ORDERED: LEVOTHYROXINE SODIUM 50 MCG TABLET PO SCH (07:00)
[2019-11-01 09:39] LABS: CHOL/HDL RATIO 5.8 (3.9-5.7)
[2019-11-01] MEDS ORDERED: ACETAMINOPHEN 325 MG TABLET PO PRN (10:00)
[2019-11-01] MEDS ORDERED: GuaiFENesin/D-METHORPHAN [SUGAR-FREE] 200-20MG/10 ML SYRUP UDCUP PO PRN (10:00)
[2019-11-01] MEDS ORDERED: MAG HYDROX/AL HYDROX/SIMETH ES 30 ML SUSPENSION UDCUP PO PRN (10:00)
[2019-11-01] MEDS ORDERED: ONDANSETRON HCL 4 MG TABLET PO PRN (10:00)
[2019-11-01] MEDS ORDERED: PETROLATUM,WHITE 28 GM JELLY TP PRN (10:00)
[2019-11-01] MEDS ORDERED: CloNIDine HCL 0.1 MG TABLET PO PRN (10:00)
[2019-11-01] MEDS ORDERED: IBUPROFEN 400 MG TABLET PO PRN (10:00)
[2019-11-01] MEDS ORDERED: MAGNESIUM HYDROXIDE SUSPENSION 30 ML UDCUP PO PRN (10:00)
[2019-11-01] MEDS ORDERED: LOPERAMIDE HCL 2 MG CAPSULE PO PRN (10:00)
[2019-11-01] MEDS ORDERED: DOCUSATE SODIUM 100 MG CAPSULE PO PRN (10:00)
[2019-11-01] MEDS ORDERED: ALBUTEROL SULFATE HFA 90 MCG/PUFF 8 GM INHALER IH PRN (10:00)
[2019-11-01] MEDS ORDERED: NICOTINE 14 MG/24 HOUR PATCH TD PRN (10:00)
[2019-11-01] MEDS: LACTOBACILLUS ACIDOPHILUS/BULGARICUS GRANULES PACKET PO SCH ×2 (12:29→16:21)
[2019-11-01] MEDS: ARIPiprazole 10 MG TABLET PO SCH (16:21)
[2019-11-01] MEDS: CITALOPRAM HYDROBROMIDE 20 MG TABLET PO SCH (16:21)
[2019-11-01 16:42] VITALS: BP 93/58
[2019-11-01 16:43] VITALS: BP 107/68
[2019-11-01] MEDS: SIMVASTATIN 10 MG TABLET PO SCH (20:44)
[2019-11-01] MEDS ORDERED: SIMVASTATIN 10 MG TABLET PO SCH (21:00)
[2019-11-02 02:52] VITALS: BP 126/95
[2019-11-02] MEDS: LEVOTHYROXINE SODIUM 50 MCG TABLET PO SCH (06:44)
[2019-11-02] MEDS: LACTOBACILLUS ACIDOPHILUS/BULGARICUS GRANULES PACKET PO SCH ×3 (08:06→17:29)
[2019-11-02] MEDS: CITALOPRAM HYDROBROMIDE 20 MG TABLET PO SCH (08:06)
[2019-11-02] MEDS: ARIPiprazole 10 MG TABLET PO SCH ×2 (08:06→20:28)
[2019-11-02 09:22] VITALS: BP 101/73
[2019-11-02 17:01] VITALS: BP 101/59
[2019-11-02] MEDS: SIMVASTATIN 10 MG TABLET PO SCH (20:28)
[2019-11-03 05:50] VITALS: BP 126/91
[2019-11-03] MEDS: LEVOTHYROXINE SODIUM 50 MCG TABLET PO SCH (06:51)
[2019-11-03] MEDS: ARIPiprazole 10 MG TABLET PO SCH (08:05)
[2019-11-03] MEDS: CITALOPRAM HYDROBROMIDE 20 MG TABLET PO SCH (08:05)
[2019-11-03] MEDS: LACTOBACILLUS ACIDOPHILUS/BULGARICUS GRANULES PACKET PO SCH (09:22)
[2019-11-03] MEDS ORDERED: CITA-106 PO (10:11)
== END 2019-11-03 12:06 | disposition home or self-care (01) | DRG 885 ==
LOC: EMS 17:15 → 3EX 21:30
PROVIDERS: ADMIT Psychiatry & Neurology Child & Adolescent Psychiatry; ATTEND Psychiatry & Neurology Child & Adolescent Psychiatry
DX: F25.1 Schizoaffective disorder, depressive type (principal); Z59.0 Homelessness; F32.9 Major depressive disorder, single episode, unspecified; E03.9 Hypothyroidism, unspecified; E78.5 Hyperlipidemia, unspecified; I10 Essential (primary) hypertension; K74.60 Unspecified cirrhosis of liver; Z91.19 Patient's noncompliance with other medical treatment and regimen; Z79.899 Other long term (current) drug therapy
CPT/HCPCS: 87081; G0378; G0480